=== PATIENT | female | born 1940 | race Caucasian/White ===

== ENCOUNTER 2018-02-10 14:38 | Inpatient (IN) | payer MEDICARE, OTHER ==
[~2018-02-10] VITALS: Ht 157.5 cm; Wt 67.2 kg
[2018-02-10 15:09] LABS: BASOPHILS % (AUTO) 0.3 % (0-1); EOSINOPHILS # (AUTO) 0.3 X10'3 (0-0.9); EOSINOPHILS % (AUTO) 3.8 % (0-6); HEMATOCRIT 34.6 % (35.0-45.0); HEMOGLOBIN 11.6 g/dl (12.0-16.0); LYMPHOCYTES # (AUTO) 2.6 X10'3 (1.1-4.8); LYMPHOCYTES % (AUTO) 39.1 % (21-51); MEAN CORPUSCULAR HEMOGLOBIN 33.7 PG (27.0-31.0); MEAN CORPUSCULAR HGB CONC 33.6 % (33.0-36.5); MEAN CORPUSCULAR VOLUME 100.3 FL (78-98); MEAN PLATELET VOLUME 7.6 FL (7.4-10.4); MONOCYTES # (AUTO) 0.7 X10'3 (0-0.9); MONOCYTES % (AUTO) 10.4 % (2-12); NEUTROPHILS % (AUTO) 46.4 % (42-75); PLATELET COUNT 178 X10'3 (140-440); RED BLOOD COUNT 3.45 X10'6 (4.20-5.60); RED CELL DISTRIBUTION WIDTH 16.3 % (11.5-14.5); WHITE BLOOD COUNT 6.6 X10'3 (4.5-11.0)
[2018-02-10] MEDS ORDERED: normal saline 1000ML IV soln IVB ONE ×2 (15:20→18:50)
[2018-02-10 15:21] LABS: INR 1.1 INR; PARTIAL THROMBOPLASTIN TIME 31 SECONDS (22-32); PROTHROMBIN TIME 11.2 SECONDS (9.0-12.0)
[2018-02-10 15:42] LABS: ALANINE AMINOTRANSFERASE 49 U/L (12-78); ALBUMIN 2.5 G/DL (3.4-5.0); ALBUMIN/GLOBULIN RATIO 0.6 (1.1-1.5); ALKALINE PHOSPHATASE 113 IU/L (46-116); ANION GAP 13 (8-16); ASPARTATE AMINO TRANSFERASE 65 U/L (10-37); BILIRUBIN,TOTAL 0.4 MG/DL (0.1-1.0); BLOOD UREA NITROGEN 13 MG/DL (7-18); BUN/CREATININE RATIO 7.6 (6.6-38.0); CALCIUM 8.5 MG/DL (8.5-10.1); CHLORIDE 102 MMOL/L (99-107); CREATININE 1.72 MG/DL (0.40-0.90); GLUCOSE 122 MG/DL (70-104); MAGNESIUM 1.4 MG/DL (1.5-2.4); PHOSPHORUS 3.9 MG/DL (2.3-4.5); POTASSIUM 3.4 MMOL/L (3.5-5.1); SODIUM 138 MMOL/L (135-145); TOTAL CARBON DIOXIDE 22.9 MMOL/L (24-32); TOTAL PROTEIN 6.5 G/DL (6.4-8.2); eGFR 29 ML/MIN
[2018-02-10] MEDS ORDERED: magnesium 1 gm/2ml inj. 1 GM in normal saline 50ml IV soln 48 ML IV ONE (16:15)
[2018-02-10] MEDS ORDERED: magnesium 2GM in 50ml NS 25 ML IV ONE (16:25)
[2018-02-10] MEDS ORDERED: METO1TAB25 PO (18:28)
[2018-02-10] MEDS ORDERED: LEVO75TA PO (18:28)
[2018-02-10] MEDS ORDERED: ROSU40TA PO (18:28)
[2018-02-10] MEDS ORDERED: FAMO20TA8 PO (18:28)
[2018-02-10] MEDS ORDERED: QUET25TA PO (18:28)
[2018-02-10] MEDS ORDERED: LYR25C PO (18:28)
[2018-02-10] MEDS ORDERED: ATOR80TA PO (18:28)
[2018-02-10] MEDS ORDERED: QUET-1 PO (18:28)
[2018-02-10] MEDS ORDERED: GABA600T2 PO (18:28)
[2018-02-10] MEDS ORDERED: LEVO50TA PO (18:31)
[2018-02-10] MEDS ORDERED: metoprolol tartrate 1mg/ml inj IV ONE (21:15)
[2018-02-10] MEDS ORDERED: HYDROcodone/acetaminophen 10/325mg tab PO PRN (21:50)
[2018-02-10] MEDS ORDERED: thiamine 100mg/ml 2ml inj. IV ONE (21:50)
[2018-02-10] MEDS ORDERED: magnesium 4gm in 100ml NS 100 ML IV PRN (21:50)
[2018-02-10] MEDS ORDERED: LORazepam 2 mg/ml vial IV PRN (21:50)
[2018-02-10] MEDS ORDERED: magnesium hydroxide 30ml (MOM) UD suspension PO PRN (21:50)
[2018-02-10] MEDS ORDERED: mag hydrox/Alum hydrox/simeth 30ml oral suspension PO PRN (21:50)
[2018-02-10] MEDS ORDERED: haloperidol lactate 5mg/ml inj IM PRN (21:50)
[2018-02-10] MEDS ORDERED: potassium Cl 20 mEq SR tablet PO PRN ×2 (21:50)
[2018-02-10] MEDS ORDERED: dextrose 50%-water 50ml dispensing syringe IV PRN (21:50)
[2018-02-10] MEDS ORDERED: magnesium 2GM in 50ml NS 50 ML IV PRN (21:50)
[2018-02-10] MEDS ORDERED: ondansetron/PF 4mg/2ml inj IV PRN (21:50)
[2018-02-10] MEDS ORDERED: potassium Cl 40MEQ/NS 500ml 500 ML IV PRN ×2 (21:50)
[2018-02-10] MEDS ORDERED: LORazepam 1 MG tablet PO PRN (21:50)
[2018-02-10] MEDS ORDERED: haloperidol 5mg tablet PO PRN (21:50)
[2018-02-10] MEDS: potassium Cl 20mEq in NS 1,000 ML IV SCH (22:52)
[2018-02-11] VITALS: BP 113/58
[2018-02-11] MEDS: temazepam 15mg capsule PO PRN (00:35)
[2018-02-11] MEDS ORDERED: diatrozoate meglu/diatrozoate sod (37% iodine) 120ML oral solution PO ONE ×2 (00:55→07:00)
[2018-02-11] MEDS ORDERED: diatrozoate meglu/diatrozoate sod (37% iodine) 120ML oral solution ONE (01:51)
[2018-02-11 05:35] LABS: BASOPHILS % (AUTO) 0.3 % (0-1); EOSINOPHILS # (AUTO) 0.2 X10'3 (0-0.9); EOSINOPHILS % (AUTO) 4.2 % (0-6); HEMATOCRIT 27.5 % (35.0-45.0); HEMOGLOBIN 9.3 g/dl (12.0-16.0); LYMPHOCYTES % (AUTO) 42.2 % (21-51); MEAN CORPUSCULAR HEMOGLOBIN 33.8 PG (27.0-31.0); MEAN CORPUSCULAR HGB CONC 33.8 % (33.0-36.5); MEAN PLATELET VOLUME 7.4 FL (7.4-10.4); MONOCYTES # (AUTO) 0.6 X10'3 (0-0.9); MONOCYTES % (AUTO) 12.8 % (2-12); NEUTROPHILS # (AUTO) 1.9 X10'3 (1.8-7.7); NEUTROPHILS % (AUTO) 40.5 % (42-75); PLATELET COUNT 131 X10'3 (140-440); RED BLOOD COUNT 2.75 X10'6 (4.20-5.60); RED CELL DISTRIBUTION WIDTH 16.6 % (11.5-14.5); WHITE BLOOD COUNT 4.7 X10'3 (4.5-11.0)
[2018-02-11 05:50] LABS: HEMOGLOBIN A1C 5.4 % (4.5-6.2)
[2018-02-11 05:54] LABS: ALANINE AMINOTRANSFERASE 35 U/L (12-78); ALBUMIN 1.9 G/DL (3.4-5.0); ALBUMIN/GLOBULIN RATIO 0.6 (1.1-1.5); ALKALINE PHOSPHATASE 84 IU/L (46-116); ANION GAP 12 (8-16); ASPARTATE AMINO TRANSFERASE 48 U/L (10-37); BILIRUBIN,TOTAL 0.4 MG/DL (0.1-1.0); BLOOD UREA NITROGEN 10 MG/DL (7-18); BUN/CREATININE RATIO 7.4 (6.6-38.0); CALCIUM 7.4 MG/DL (8.5-10.1); CHLORIDE 112 MMOL/L (99-107); CREATININE 1.35 MG/DL (0.40-0.90); GLUCOSE 83 MG/DL (70-104); MAGNESIUM 1.5 MG/DL (1.5-2.4); POTASSIUM 3.3 MMOL/L (3.5-5.1); SODIUM 143 MMOL/L (135-145); TOTAL CARBON DIOXIDE 18.9 MMOL/L (24-32); TOTAL PROTEIN 5.1 G/DL (6.4-8.2); eGFR 38 ML/MIN
[2018-02-11] MEDS ORDERED: normal saline 500ml IV soln 500 ML IV ONE (07:05)
[2018-02-11 07:44] VITALS: BP 80/42
[2018-02-11] MEDS: metoprolol tartrate 50mg tablet PO SCH (08:00)
[2018-02-11] MEDS ORDERED: non-formulary drug (Rosuvastatin Calcium* (Crestor*) 1 TAB) PO SCH (08:00)
[2018-02-11] MEDS ORDERED: pregabalin 25mg capsule PO ONE ×2 (08:00→21:50)
[2018-02-11] MEDS: K and/or MAG REPLACEMENT MC SCH (08:00)
[2018-02-11] MEDS ORDERED: gabapentin 300mg capsule PO SCH (08:00)
[2018-02-11] MEDS: HYDROchlorothiazide 25mg tablet PO SCH (08:00)
[2018-02-11] MEDS ORDERED: non-formulary drug (Metoprolol/Hydrochlorothiazide 50/25 MG* (Lopressor Hct 50/25 MG*) 1 T PO SCH (08:00)
[2018-02-11] MEDS ORDERED: non-formulary drug (Levothyroxine Sodium (Synthroid) 1 TAB) PO SCH (08:00)
[2018-02-11] MEDS ORDERED: non-formulary drug (Gabapentin 1 TAB) PO SCH (08:00)
[2018-02-11 08:33] LABS: C DIFF ANTIGEN NEGATIVE (NEGATIVE); C DIFF SPECIMEN=DIARRHEA? ACCEPTABLE; C DIFFICILE TOXINS A&B NEGATIVE (Neg)
[2018-02-11] MEDS ORDERED: albumin (human) 25% 100 ML IV solution IV ONE (08:45)
[2018-02-11] MEDS: potassium Cl 20mEq in NS 1,000 ML IV SCH ×2 (10:19→17:48)
[2018-02-11] MEDS: atorvastatin 20mg tablet PO SCH (10:22)
[2018-02-11] MEDS: levoTHYROXINE 25mcg tablet PO SCH (10:23)
[2018-02-11] MEDS: famotidine 20mg tablet PO SCH ×2 (10:24→21:59)
[2018-02-11] MEDS: heparin, porcine 5000 units/ml vial SQ SCH ×2 (10:27→20:00)
[2018-02-11 11:56] VITALS: BP 118/55
[2018-02-11] MEDS: diatr meglu/diatrizoate 30ml oral sol.-(3 dose) bottle PO SCH (14:00)
[2018-02-11 17:01] VITALS: BP 110/63
[2018-02-11 17:12] LABS: ALANINE AMINOTRANSFERASE 30 U/L (12-78); ALBUMIN 2.5 G/DL (3.4-5.0); ALBUMIN/GLOBULIN RATIO 0.9 (1.1-1.5); ALKALINE PHOSPHATASE 70 IU/L (46-116); ANION GAP 10 (8-16); ASPARTATE AMINO TRANSFERASE 41 U/L (10-37); BILIRUBIN,TOTAL 0.4 MG/DL (0.1-1.0); BLOOD UREA NITROGEN 9 MG/DL (7-18); BUN/CREATININE RATIO 7.2 (6.6-38.0); CALCIUM 7.9 MG/DL (8.5-10.1); CHLORIDE 115 MMOL/L (99-107); CREATININE 1.25 MG/DL (0.40-0.90); GLUCOSE 82 MG/DL (70-104); POTASSIUM 3.4 MMOL/L (3.5-5.1); SODIUM 147 MMOL/L (135-145); TOTAL CARBON DIOXIDE 21.9 MMOL/L (24-32); TOTAL PROTEIN 5.2 G/DL (6.4-8.2); eGFR 41 ML/MIN
[2018-02-11 20:00] VITALS: BP 124/67
[2018-02-11] MEDS ORDERED: QUEtiapine 25mg tablet PO SCH (21:00)
[2018-02-11] MEDS ORDERED: pregabalin 25mg capsule PO SCH ×2 (21:00)
[2018-02-11] MEDS ORDERED: atorvastatin 20mg tablet PO SCH (21:00)
[2018-02-11] MEDS ORDERED: non-formulary drug (Atorvastatin Calcium* (Lipitor*) 1 TABLET) PO SCH (21:00)
[2018-02-11] MEDS: pregabalin 25mg capsule PO SCH (21:30)
[2018-02-11] MEDS: acetaminophen 325mg tablet PO PRN (23:17)
[2018-02-12] VITALS (11 sets, daily range): BP systolic 93–157; BP diastolic 50–106
[2018-02-12] MEDS: potassium Cl 20mEq in NS 1,000 ML IV SCH ×5 (00:50→23:47)
[2018-02-12] MEDS: acetaminophen 325mg tablet PO PRN (05:36)
[2018-02-12 05:42] LABS: BASOPHILS % (AUTO) 0.4 % (0-1); EOSINOPHILS # (AUTO) 0.2 X10'3 (0-0.9); HEMATOCRIT 24.3 % (35.0-45.0); HEMOGLOBIN 8.3 g/dl (12.0-16.0); LYMPHOCYTES # (AUTO) 1.8 X10'3 (1.1-4.8); LYMPHOCYTES % (AUTO) 47.9 % (21-51); MEAN CORPUSCULAR HGB CONC 34.3 % (33.0-36.5); MEAN CORPUSCULAR VOLUME 99.3 FL (78-98); MEAN PLATELET VOLUME 7.4 FL (7.4-10.4); MONOCYTES # (AUTO) 0.4 X10'3 (0-0.9); MONOCYTES % (AUTO) 11.7 % (2-12); NEUTROPHILS # (AUTO) 1.3 X10'3 (1.8-7.7); PLATELET COUNT 131 X10'3 (140-440); RED BLOOD COUNT 2.44 X10'6 (4.20-5.60); RED CELL DISTRIBUTION WIDTH 16.1 % (11.5-14.5); WHITE BLOOD COUNT 3.7 X10'3 (4.5-11.0)
[2018-02-12 06:10] LABS: ALANINE AMINOTRANSFERASE 32 U/L (12-78); ALBUMIN 2.3 G/DL (3.4-5.0); ALBUMIN/GLOBULIN RATIO 0.9 (1.1-1.5); ALKALINE PHOSPHATASE 70 IU/L (46-116); ANION GAP 10 (8-16); ASPARTATE AMINO TRANSFERASE 45 U/L (10-37); BILIRUBIN,TOTAL 0.4 MG/DL (0.1-1.0); BLOOD UREA NITROGEN 8 MG/DL (7-18); BUN/CREATININE RATIO 7.1 (6.6-38.0); CALCIUM 7.7 MG/DL (8.5-10.1); CHLORIDE 116 MMOL/L (99-107); CREATININE 1.13 MG/DL (0.40-0.90); GLUCOSE 72 MG/DL (70-104); MAGNESIUM 1.4 MG/DL (1.5-2.4); POTASSIUM 3.6 MMOL/L (3.5-5.1); SODIUM 146 MMOL/L (135-145); TOTAL CARBON DIOXIDE 19.8 MMOL/L (24-32); eGFR 47 ML/MIN
[2018-02-12 07:15] LABS: OCCULT BLOOD STOOL NEGATIVE (Neg)
[2018-02-12] MEDS ORDERED: albumin (human) 25% 100 ML IV solution IV ONE (07:50)
[2018-02-12] MEDS: K and/or MAG REPLACEMENT MC SCH (07:58)
[2018-02-12] MEDS: heparin, porcine 5000 units/ml vial SQ SCH ×2 (08:00→20:00)
[2018-02-12] MEDS: HYDROchlorothiazide 25mg tablet PO SCH (08:00)
[2018-02-12] MEDS: atorvastatin 20mg tablet PO SCH (08:00)
[2018-02-12] MEDS: famotidine 20mg tablet PO SCH ×2 (08:00→20:58)
[2018-02-12] MEDS: levoTHYROXINE 25mcg tablet PO SCH (08:00)
[2018-02-12] MEDS: metoprolol tartrate 50mg tablet PO SCH (08:00)
[2018-02-12] MEDS: diatr meglu/diatrizoate 30ml oral sol.-(3 dose) bottle PO SCH (10:00)
[2018-02-12] MEDS: magnesium Cl slow-release 64mg tablet PO PRN (14:57)
[2018-02-12] MEDS ORDERED: calcium chloride inj. 1,000 MG in normal saline 100ml IV soln 90 ML IV ONE (16:45)
[2018-02-12] MEDS ORDERED: digoxin 250mcg/ml 2ml ampule IV ONE (16:45)
[2018-02-12] MEDS: metoprolol tartrate 25mg tablet PO SCH (19:14)
[2018-02-12] MEDS: nortriptyline 10mg capsule PO SCH (20:59)
[2018-02-12] MEDS: pregabalin 25mg capsule PO SCH (20:59)
[2018-02-12] MEDS: temazepam 15mg capsule PO PRN (22:04)
[2018-02-13] VITALS (11 sets, daily range): BP systolic 106–148; BP diastolic 56–86
[2018-02-13] MEDS: acetaminophen 325mg tablet PO PRN (00:32)
[2018-02-13] MEDS: potassium Cl 20mEq in NS 1,000 ML IV SCH ×2 (01:18→14:51)
[2018-02-13] MEDS: HYDROcodone/acetaminophen 5mg/325mg tablet PO PRN (04:03)
[2018-02-13 07:32] LABS: BASOPHILS % (AUTO) 0.4 % (0-1); EOSINOPHILS # (AUTO) 0.2 X10'3 (0-0.9); EOSINOPHILS % (AUTO) 5.1 % (0-6); HEMATOCRIT 32.7 % (35.0-45.0); LYMPHOCYTES # (AUTO) 1.8 X10'3 (1.1-4.8); LYMPHOCYTES % (AUTO) 38.4 % (21-51); MEAN CORPUSCULAR HGB CONC 33.7 % (33.0-36.5); MEAN CORPUSCULAR VOLUME 97.9 FL (78-98); MEAN PLATELET VOLUME 7.5 FL (7.4-10.4); MONOCYTES # (AUTO) 0.6 X10'3 (0-0.9); MONOCYTES % (AUTO) 13.3 % (2-12); NEUTROPHILS % (AUTO) 42.8 % (42-75); PLATELET COUNT 128 X10'3 (140-440); RED BLOOD COUNT 3.34 X10'6 (4.20-5.60); RED CELL DISTRIBUTION WIDTH 19.1 % (11.5-14.5); WHITE BLOOD COUNT 4.7 X10'3 (4.5-11.0)
[2018-02-13 07:43] LABS: ALANINE AMINOTRANSFERASE 32 U/L (12-78); ALBUMIN 2.7 G/DL (3.4-5.0); ALKALINE PHOSPHATASE 72 IU/L (46-116); ANION GAP 9 (8-16); ASPARTATE AMINO TRANSFERASE 48 U/L (10-37); BILIRUBIN,TOTAL 1.3 MG/DL (0.1-1.0); BLOOD UREA NITROGEN 7 MG/DL (7-18); BUN/CREATININE RATIO 6.5 (6.6-38.0); CALCIUM 8.9 MG/DL (8.5-10.1); CHLORIDE 115 MMOL/L (99-107); CREATININE 1.08 MG/DL (0.40-0.90); GLUCOSE 83 MG/DL (70-104); MAGNESIUM 1.3 MG/DL (1.5-2.4); POTASSIUM 4.1 MMOL/L (3.5-5.1); SODIUM 144 MMOL/L (135-145); TOTAL CARBON DIOXIDE 20.3 MMOL/L (24-32); TOTAL PROTEIN 5.4 G/DL (6.4-8.2); eGFR 49 ML/MIN
[2018-02-13] MEDS: K and/or MAG REPLACEMENT MC SCH (07:45)
[2018-02-13] MEDS: metoprolol tartrate 25mg tablet PO SCH ×2 (08:00→21:02)
[2018-02-13] MEDS: heparin, porcine 5000 units/ml vial SQ SCH ×2 (08:04→21:02)
[2018-02-13] MEDS: famotidine 20mg tablet PO SCH ×2 (08:04→21:01)
[2018-02-13] MEDS: levoTHYROXINE 25mcg tablet PO SCH (08:05)
[2018-02-13] MEDS: atorvastatin 20mg tablet PO SCH (08:06)
[2018-02-13] MEDS: diatr meglu/diatrizoate 30ml oral sol.-(3 dose) bottle PO SCH (10:00)
[2018-02-13] MEDS: magnesium Cl slow-release 64mg tablet PO PRN (16:31)
[2018-02-13] MEDS ORDERED: LORazepam 1 MG tablet PO PRN (17:00)
[2018-02-13] MEDS ORDERED: metoprolol tartrate 50mg tablet PO STA (18:18)
[2018-02-13] MEDS: nortriptyline 10mg capsule PO SCH (20:57)
[2018-02-13] MEDS: pregabalin 25mg capsule PO SCH (20:59)
[2018-02-13] MEDS ORDERED: furosemide 20 MG/2 ML vial IV ONE ×2 (21:25→23:20)
[2018-02-13 21:55] LABS: ABG BASE EXCESS -13.2 mmol/L (-2.0-3.0); ABG HCO3 14.8 mmol/L (22.0-26.0); ABG OXYGEN SATURATION 89.1 % (95-98); ABG PCO2 (T) 41.1 mmHg (32.0-45.0); ABG PH (T) 7.172 (7.350-7.450); ABG PO2 (T) 67.9 mmHg (83-108); ALLEN'S TEST Positive; FCOHb 0.5 % (0.5-1.5); FMetHb 0.3 % (0.3-1.12); FO2Hb 88.4 % (94-100); PATIENT TEMPERATURE 36.9; RESPIRATORY RATE (OBSERVED) 30 b/min; TOTAL HEMOGLOBIN 14.5 G/dl (12.0-16.0)
[2018-02-13] MEDS ORDERED: sodium bicarbonate (8.4%) inj. 150 MEQ in sodium chloride 0.45% 1,000 ML IV SCH (23:35)
[2018-02-13] MEDS ORDERED: sodium bicarbonate 1 MEQ/1 ml inj ONE (23:54)
[2018-02-14] VITALS (33 sets, daily range): BP systolic 55–148; BP diastolic 30–76
[2018-02-14 03:05] LABS: ABG BASE EXCESS -6.4 mmol/L (-2.0-3.0); ABG HCO3 18.6 mmol/L (22.0-26.0); ABG OXYGEN SATURATION 95.6 % (95-98); ABG PCO2 (T) 34.2 mmHg (32.0-45.0); ABG PH (T) 7.349 (7.350-7.450); ABG PO2 (T) 78.1 mmHg (83-108); ALLEN'S TEST Positive; FCOHb 0.5 % (0.5-1.5); FMetHb 0.1 % (0.3-1.12); MINUTE VOLUME 16 L/min; PATIENT TEMPERATURE 36.3; RESPIRATORY RATE 20 b/min; RESPIRATORY RATE (OBSERVED) 32 b/min; TOTAL HEMOGLOBIN 12.9 G/dl (12.0-16.0)
[2018-02-14 05:12] LABS: ALANINE AMINOTRANSFERASE 28 U/L (12-78); ALBUMIN 2.7 G/DL (3.4-5.0); ALBUMIN/GLOBULIN RATIO 0.9 (1.1-1.5); ALKALINE PHOSPHATASE 74 IU/L (46-116); ANION GAP 11 (8-16); ASPARTATE AMINO TRANSFERASE 45 U/L (10-37); BILIRUBIN,TOTAL 0.9 MG/DL (0.1-1.0); BLOOD UREA NITROGEN 9 MG/DL (7-18); BUN/CREATININE RATIO 7.4 (6.6-38.0); CALCIUM 9.4 MG/DL (8.5-10.1); CHLORIDE 111 MMOL/L (99-107); CREATININE 1.22 MG/DL (0.40-0.90); GLUCOSE 87 MG/DL (70-104); MAGNESIUM 1.3 MG/DL (1.5-2.4); PHOSPHORUS 4.1 MG/DL (2.3-4.5); POTASSIUM 4.2 MMOL/L (3.5-5.1); SODIUM 142 MMOL/L (135-145); TOTAL CARBON DIOXIDE 20.1 MMOL/L (24-32); TOTAL PROTEIN 5.8 G/DL (6.4-8.2); eGFR 43 ML/MIN
[2018-02-14 05:13] LABS: BASOPHILS % (AUTO) 0.3 % (0-1); EOSINOPHILS % (AUTO) 0.1 % (0-6); HEMOGLOBIN 12.7 g/dl (12.0-16.0); LYMPHOCYTES # (AUTO) 1.1 X10'3 (1.1-4.8); MEAN CORPUSCULAR HEMOGLOBIN 33.1 PG (27.0-31.0); MEAN CORPUSCULAR HGB CONC 34.3 % (33.0-36.5); MEAN CORPUSCULAR VOLUME 96.6 FL (78-98); MONOCYTES # (AUTO) 0.8 X10'3 (0-0.9); MONOCYTES % (AUTO) 9.4 % (2-12); NEUTROPHILS # (AUTO) 6.3 X10'3 (1.8-7.7); NEUTROPHILS % (AUTO) 77.2 % (42-75); PLATELET COUNT 130 X10'3 (140-440); RED BLOOD COUNT 3.83 X10'6 (4.20-5.60); WHITE BLOOD COUNT 8.1 X10'3 (4.5-11.0)
[2018-02-14] MEDS ORDERED: DOPamine 400mg/D5W 250ml 250 ML IV SCH (07:15)
[2018-02-14] MEDS ORDERED: albumin (human) 25% 100 ML IV solution IV ONE (07:15)
[2018-02-14] MEDS ORDERED: piperacillin/tazo 3.375gm/50ml 50 ML IV SCH (08:00)
[2018-02-14] MEDS ORDERED: sod chloride 0.9% 10ml flush syringe IV ONE (08:00)
[2018-02-14] MEDS: metoprolol tartrate 25mg tablet PO SCH (08:00)
[2018-02-14] MEDS ORDERED: DOPamine/D5W 400mg/250ml bag IV ONE (08:00)
[2018-02-14] MEDS: diatr meglu/diatrizoate 30ml oral sol.-(3 dose) bottle PO SCH (08:13)
[2018-02-14] MEDS ORDERED: heparin sodium, porcine/PF 100unit/ml 5ML syringe IV ONE (08:41)
[2018-02-14] MEDS: levoTHYROXINE 25mcg tablet PO SCH (08:42)
[2018-02-14] MEDS: atorvastatin 20mg tablet PO SCH (08:45)
[2018-02-14] MEDS: famotidine 20mg tablet PO SCH ×2 (08:48→19:53)
[2018-02-14] MEDS: K and/or MAG REPLACEMENT MC SCH (09:07)
[2018-02-14] MEDS: heparin, porcine 5000 units/ml vial SQ SCH ×2 (09:12→19:53)
[2018-02-14] MEDS ORDERED: amiodarone 150mg/dext, iso-os 100 ML IV ONE (10:00)
[2018-02-14] MEDS: amiodarone/D5 450MG/250ML BAG 250 ML IV SCH ×2 (10:38→18:32)
[2018-02-14] MEDS: Protein Shake (high protein) 240ml (8oz) cup PO SCH ×2 (13:00→18:10)
[2018-02-14] MEDS: NORepinephrine 8mg/ 250ml NS 250 ML IV SCH (14:15)
[2018-02-14] MEDS: nortriptyline 10mg capsule PO SCH (20:46)
[2018-02-14] MEDS: pregabalin 25mg capsule PO SCH (20:46)
[2018-02-14] MEDS: normal saline 1000ml 1,000 ML IV SCH (22:10)
[2018-02-14] MEDS: temazepam 15mg capsule PO PRN (22:10)
[2018-02-15] VITALS (26 sets, daily range): BP systolic 73–140; BP diastolic 36–94
[2018-02-15 04:10] LABS: BASOPHILS % (AUTO) 0.5 % (0-1); EOSINOPHILS # (AUTO) 0.2 X10'3 (0-0.9); EOSINOPHILS % (AUTO) 1.8 % (0-6); HEMATOCRIT 33.1 % (35.0-45.0); HEMOGLOBIN 11.2 g/dl (12.0-16.0); LYMPHOCYTES # (AUTO) 2.4 X10'3 (1.1-4.8); LYMPHOCYTES % (AUTO) 27.1 % (21-51); MEAN CORPUSCULAR HEMOGLOBIN 32.7 PG (27.0-31.0); MEAN CORPUSCULAR HGB CONC 33.8 % (33.0-36.5); MEAN CORPUSCULAR VOLUME 96.6 FL (78-98); MEAN PLATELET VOLUME 7.2 FL (7.4-10.4); MONOCYTES # (AUTO) 0.8 X10'3 (0-0.9); MONOCYTES % (AUTO) 9.3 % (2-12); NEUTROPHILS # (AUTO) 5.5 X10'3 (1.8-7.7); NEUTROPHILS % (AUTO) 61.3 % (42-75); PLATELET COUNT 138 X10'3 (140-440); RED BLOOD COUNT 3.42 X10'6 (4.20-5.60); RED CELL DISTRIBUTION WIDTH 18.5 % (11.5-14.5)
[2018-02-15 04:24] LABS: ALANINE AMINOTRANSFERASE 26 U/L (12-78); ALBUMIN 2.8 G/DL (3.4-5.0); ALBUMIN/GLOBULIN RATIO 0.9 (1.1-1.5); ALKALINE PHOSPHATASE 66 IU/L (46-116); ANION GAP 10 (8-16); ASPARTATE AMINO TRANSFERASE 36 U/L (10-37); BILIRUBIN,TOTAL 0.7 MG/DL (0.1-1.0); BLOOD UREA NITROGEN 15 MG/DL (7-18); BUN/CREATININE RATIO 10.9 (6.6-38.0); CALCIUM 8.9 MG/DL (8.5-10.1); CHLORIDE 111 MMOL/L (99-107); CREATININE 1.38 MG/DL (0.40-0.90); GLUCOSE 105 MG/DL (70-104); MAGNESIUM 1.4 MG/DL (1.5-2.4); POTASSIUM 3.1 MMOL/L (3.5-5.1); SODIUM 143 MMOL/L (135-145); TOTAL CARBON DIOXIDE 21.7 MMOL/L (24-32); eGFR 37 ML/MIN
[2018-02-15] MEDS: K and/or MAG REPLACEMENT MC SCH (08:00)
[2018-02-15] MEDS: famotidine 20mg tablet PO SCH ×2 (08:00→20:31)
[2018-02-15] MEDS: levoTHYROXINE 25mcg tablet PO SCH (08:00)
[2018-02-15] MEDS: atorvastatin 20mg tablet PO SCH (08:00)
[2018-02-15] MEDS: heparin, porcine 5000 units/ml vial SQ SCH ×2 (08:03→20:32)
[2018-02-15] MEDS: Protein Shake (high protein) 240ml (8oz) cup PO SCH ×3 (08:16→18:00)
[2018-02-15] MEDS ORDERED: potassium Cl 20 mEq SR tablet PO PRN ×4 (10:55→17:15)
[2018-02-15] MEDS ORDERED: normal saline 1000ml 1,000 ML IV ONE (12:45)
[2018-02-15] MEDS: amiodarone/D5 450MG/250ML BAG 250 ML IV SCH (15:55)
[2018-02-15] MEDS ORDERED: potassium Cl 40MEQ/NS 500ml 500 ML IV PRN ×2 (17:15)
[2018-02-15] MEDS ORDERED: potassium Cl 40MEQ/250ML bag 250 ML IV PRN ×2 (17:15)
[2018-02-15] MEDS: K, MAG and/or Phos replacement - Verify level? MC SCH (17:28)
[2018-02-15] MEDS ORDERED: albuterol 2.5 MG/3 ML nebule NEB PRN (19:30)
[2018-02-15] MEDS ORDERED: LIDOCAINE 1% IV ONE (20:30)
[2018-02-15] MEDS ORDERED: POTASSIUM CL IV ONE (20:30)
[2018-02-15] MEDS ORDERED: LIDOCAINE 1% IV PRN (20:30)
[2018-02-15] MEDS ORDERED: POTASSIUM CL IV PRN (20:30)
[2018-02-15] MEDS: nortriptyline 10mg capsule PO SCH (20:32)
[2018-02-15] MEDS: pregabalin 25mg capsule PO SCH (20:33)
[2018-02-15] MEDS: albuterol 2.5 MG/3 ML nebule NEB PRN (21:23)
[2018-02-15] MEDS ORDERED: magnesium 4gm in 100ml NS 100 ML IV PRN (21:50)
[2018-02-15] MEDS ORDERED: magnesium 2GM in 50ml NS 50 ML IV PRN (21:50)
[2018-02-15] MEDS: temazepam 15mg capsule PO PRN (22:44)
[2018-02-15] MEDS: normal saline 1000ml 1,000 ML IV SCH (22:46)
[2018-02-16] VITALS (25 sets, daily range): BP systolic 95–156; BP diastolic 43–74
[2018-02-16] MEDS: amiodarone/D5 450MG/250ML BAG 250 ML IV SCH ×2 (03:06→20:08)
[2018-02-16] MEDS: NORepinephrine 8mg/ 250ml NS 250 ML IV SCH (03:56)
[2018-02-16] MEDS: albuterol 2.5 MG/3 ML nebule NEB PRN (04:18)
[2018-02-16 04:43] LABS: MAGNESIUM 1.4 MG/DL (1.5-2.4); POTASSIUM 3.4 MMOL/L (3.5-5.1)
[2018-02-16] MEDS: K and/or MAG REPLACEMENT MC SCH (08:00)
[2018-02-16] MEDS: K, MAG and/or Phos replacement - Verify level? MC SCH (08:00)
[2018-02-16] MEDS ORDERED: LORazepam 1 MG tablet PO PRN (08:35)
[2018-02-16] MEDS: atorvastatin 20mg tablet PO SCH (09:07)
[2018-02-16] MEDS: famotidine 20mg tablet PO SCH ×3 (09:07→20:19)
[2018-02-16] MEDS: levoTHYROXINE 25mcg tablet PO SCH (09:07)
[2018-02-16] MEDS: Protein Shake (high protein) 240ml (8oz) cup PO SCH ×3 (09:08→18:00)
[2018-02-16] MEDS: heparin, porcine 5000 units/ml vial SQ SCH ×2 (09:08→20:18)
[2018-02-16 11:07] LABS: ALANINE AMINOTRANSFERASE 23 U/L (12-78); ALBUMIN 2.6 G/DL (3.4-5.0); ALBUMIN/GLOBULIN RATIO 0.9 (1.1-1.5); ALKALINE PHOSPHATASE 66 IU/L (46-116); ANION GAP 12 (8-16); ASPARTATE AMINO TRANSFERASE 34 U/L (10-37); BILIRUBIN,TOTAL 0.6 MG/DL (0.1-1.0); BLOOD UREA NITROGEN 16 MG/DL (7-18); BUN/CREATININE RATIO 12.8 (6.6-38.0); CALCIUM 8.5 MG/DL (8.5-10.1); CHLORIDE 113 MMOL/L (99-107); CREATININE 1.25 MG/DL (0.40-0.90); GLUCOSE 110 MG/DL (70-104); PHOSPHORUS 3.1 MG/DL (2.3-4.5); SODIUM 145 MMOL/L (135-145); TOTAL CARBON DIOXIDE 19.7 MMOL/L (24-32); TOTAL PROTEIN 5.5 G/DL (6.4-8.2); eGFR 41 ML/MIN
[2018-02-16] MEDS ORDERED: midodrine tablet 2.5 MG TABLET PO SCH (12:05)
[2018-02-16] MEDS: megestrol acetate 400mg/10ml UD oral suspension PO SCH ×2 (13:00→20:19)
[2018-02-16] MEDS: HYDROcodone/acetaminophen 5mg/325mg tablet PO PRN (13:22)
[2018-02-16] MEDS: midodrine 5mg tablet PO SCH (16:14)
[2018-02-16] MEDS: pregabalin 25mg capsule PO SCH (20:17)
[2018-02-16] MEDS: temazepam 15mg capsule PO PRN (20:17)
[2018-02-16] MEDS: magnesium Cl slow-release 64mg tablet PO PRN ×3 (20:17→20:31)
[2018-02-16] MEDS: nortriptyline 10mg capsule PO SCH (20:17)
[2018-02-16] MEDS ORDERED: normal saline 1000ml 1,000 ML IV SCH (21:00)
[2018-02-17] VITALS (26 sets, daily range): BP systolic 78–140; BP diastolic 48–75
[2018-02-17] MEDS: midodrine 5mg tablet PO SCH ×3 (00:14→18:01)
[2018-02-17 03:11] LABS: BASOPHILS % (AUTO) 0.3 % (0-1); EOSINOPHILS # (AUTO) 0.3 X10'3 (0-0.9); EOSINOPHILS % (AUTO) 4.7 % (0-6); HEMOGLOBIN 9.1 g/dl (12.0-16.0); LYMPHOCYTES # (AUTO) 1.3 X10'3 (1.1-4.8); LYMPHOCYTES % (AUTO) 21.4 % (21-51); MEAN CORPUSCULAR HEMOGLOBIN 32.9 PG (27.0-31.0); MEAN CORPUSCULAR HGB CONC 33.6 % (33.0-36.5); MEAN PLATELET VOLUME 8.4 FL (7.4-10.4); MONOCYTES # (AUTO) 0.6 X10'3 (0-0.9); MONOCYTES % (AUTO) 10.1 % (2-12); NEUTROPHILS # (AUTO) 3.9 X10'3 (1.8-7.7); NEUTROPHILS % (AUTO) 63.5 % (42-75); PLATELET COUNT 110 X10'3 (140-440); RED BLOOD COUNT 2.76 X10'6 (4.20-5.60); RED CELL DISTRIBUTION WIDTH 17.6 % (11.5-14.5); WHITE BLOOD COUNT 6.1 X10'3 (4.5-11.0)
[2018-02-17 03:24] LABS: ALANINE AMINOTRANSFERASE 24 U/L (12-78); ALBUMIN 2.6 G/DL (3.4-5.0); ALBUMIN/GLOBULIN RATIO 0.9 (1.1-1.5); ALKALINE PHOSPHATASE 75 IU/L (46-116); ANION GAP 10 (8-16); ASPARTATE AMINO TRANSFERASE 31 U/L (10-37); BILIRUBIN,TOTAL 0.8 MG/DL (0.1-1.0); BLOOD UREA NITROGEN 15 MG/DL (7-18); BUN/CREATININE RATIO 12.6 (6.6-38.0); CALCIUM 8.7 MG/DL (8.5-10.1); CHLORIDE 112 MMOL/L (99-107); CREATININE 1.19 MG/DL (0.40-0.90); GLUCOSE 115 MG/DL (70-104); MAGNESIUM 1.4 MG/DL (1.5-2.4); PHOSPHORUS 2.9 MG/DL (2.3-4.5); SODIUM 143 MMOL/L (135-145); TOTAL CARBON DIOXIDE 21.3 MMOL/L (24-32); TOTAL PROTEIN 5.6 G/DL (6.4-8.2); eGFR 44 ML/MIN
[2018-02-17] MEDS ORDERED: magnesium 2GM in 50ml NS 50 ML IV PRN (04:25)
[2018-02-17] MEDS ORDERED: magnesium 4gm in 100ml NS 100 ML IV PRN (04:25)
[2018-02-17 07:00] LABS: ANISOCYTOSIS 2+; ELLIPTOCYTES FEW; HYPOCHROMASIA 1+; PLATELET ESTIMATE DECREASED; POLYCHROMASIA 1+
[2018-02-17 07:01] LABS: BURR CELLS 1+
[2018-02-17] MEDS: levoTHYROXINE 25mcg tablet PO SCH (08:00)
[2018-02-17] MEDS: K and/or MAG REPLACEMENT MC SCH (08:00)
[2018-02-17] MEDS: megestrol acetate 400mg/10ml UD oral suspension PO SCH ×4 (08:00→20:18)
[2018-02-17] MEDS: K, MAG and/or Phos replacement - Verify level? MC SCH (08:00)
[2018-02-17] MEDS: atorvastatin 20mg tablet PO SCH (08:00)
[2018-02-17] MEDS: heparin, porcine 5000 units/ml vial SQ SCH ×2 (08:00→20:19)
[2018-02-17] MEDS: famotidine 20mg tablet PO SCH ×2 (08:00→20:18)
[2018-02-17] MEDS: Protein Shake (high protein) 240ml (8oz) cup PO SCH ×3 (08:00→18:00)
[2018-02-17] MEDS: amiodarone/D5 450MG/250ML BAG 250 ML IV SCH (09:02)
[2018-02-17] MEDS ORDERED: amiodarone 200mg tablet PO ONE (11:45)
[2018-02-17 19:16] LABS: OCCULT BLOOD STOOL NEGATIVE (Neg)
[2018-02-17 19:38] LABS: % IRON SATURATION 53 % (11-46); IRON 43 UG/DL (49-151); TOTAL IRON BINDING CAPACITY 81 UG/DL (259-388)
[2018-02-17] MEDS: amiodarone 200mg tablet PO SCH (20:17)
[2018-02-17] MEDS: temazepam 15mg capsule PO PRN (20:18)
[2018-02-17] MEDS: nortriptyline 10mg capsule PO SCH (20:18)
[2018-02-17] MEDS: pregabalin 25mg capsule PO SCH (20:18)
[2018-02-18] VITALS (20 sets, daily range): BP systolic 82–151; BP diastolic 47–83
[2018-02-18] MEDS: midodrine 5mg tablet PO SCH ×4 (00:08→23:44)
[2018-02-18] MEDS: NORepinephrine 8mg/ 250ml NS 250 ML IV SCH (01:22)
[2018-02-18 05:29] LABS: BASOPHILS % (AUTO) 0.4 % (0-1); EOSINOPHILS # (AUTO) 0.2 X10'3 (0-0.9); EOSINOPHILS % (AUTO) 3.2 % (0-6); HEMATOCRIT 32.7 % (35.0-45.0); HEMOGLOBIN 11.1 g/dl (12.0-16.0); LYMPHOCYTES # (AUTO) 1.8 X10'3 (1.1-4.8); LYMPHOCYTES % (AUTO) 24.9 % (21-51); MEAN CORPUSCULAR HEMOGLOBIN 32.7 PG (27.0-31.0); MEAN CORPUSCULAR HGB CONC 33.8 % (33.0-36.5); MEAN PLATELET VOLUME 8.5 FL (7.4-10.4); MONOCYTES # (AUTO) 0.8 X10'3 (0-0.9); MONOCYTES % (AUTO) 10.6 % (2-12); NEUTROPHILS # (AUTO) 4.5 X10'3 (1.8-7.7); NEUTROPHILS % (AUTO) 60.9 % (42-75); PLATELET COUNT 133 X10'3 (140-440); RED BLOOD COUNT 3.37 X10'6 (4.20-5.60); RED CELL DISTRIBUTION WIDTH 17.3 % (11.5-14.5); WHITE BLOOD COUNT 7.4 X10'3 (4.5-11.0)
[2018-02-18 05:43] LABS: ALANINE AMINOTRANSFERASE 19 U/L (12-78); ALBUMIN 2.1 G/DL (3.4-5.0); ALBUMIN/GLOBULIN RATIO 0.7 (1.1-1.5); ALKALINE PHOSPHATASE 71 IU/L (46-116); ANION GAP 8 (8-16); ASPARTATE AMINO TRANSFERASE 27 U/L (10-37); BILIRUBIN,TOTAL 0.6 MG/DL (0.1-1.0); BLOOD UREA NITROGEN 13 MG/DL (7-18); CALCIUM 8.5 MG/DL (8.5-10.1); CHLORIDE 108 MMOL/L (99-107); CREATININE 1.08 MG/DL (0.40-0.90); GLUCOSE 113 MG/DL (70-104); MAGNESIUM 2.4 MG/DL (1.5-2.4); PHOSPHORUS 2.9 MG/DL (2.3-4.5); POTASSIUM 3.6 MMOL/L (3.5-5.1); SODIUM 139 MMOL/L (135-145); TOTAL CARBON DIOXIDE 23.1 MMOL/L (24-32); TOTAL PROTEIN 5.1 G/DL (6.4-8.2); eGFR 49 ML/MIN
[2018-02-18] MEDS: K, MAG and/or Phos replacement - Verify level? MC SCH (06:34)
[2018-02-18] MEDS: K and/or MAG REPLACEMENT MC SCH (06:35)
[2018-02-18] MEDS: Protein Shake (high protein) 240ml (8oz) cup PO SCH ×3 (08:00→18:35)
[2018-02-18] MEDS: megestrol acetate 400mg/10ml UD oral suspension PO SCH ×3 (09:44→20:28)
[2018-02-18] MEDS: famotidine 20mg tablet PO SCH ×2 (09:45→20:27)
[2018-02-18] MEDS: atorvastatin 20mg tablet PO SCH (09:45)
[2018-02-18] MEDS: amiodarone 200mg tablet PO SCH ×2 (09:45→20:27)
[2018-02-18] MEDS: levoTHYROXINE 25mcg tablet PO SCH (09:45)
[2018-02-18] MEDS: heparin, porcine 5000 units/ml vial SQ SCH ×2 (09:46→20:29)
[2018-02-18 16:29] LABS: CLARITY,URINE TURBID (Clear); COLOR,URINE STRAW (Yellow); GLUCOSE, URINE NEGATIVE (Neg); KETONES,URINE NEGATIVE (Neg); LEUKOCYTE ESTERASE ,URINE LARGE (Neg); NITRITES, URINE POSITIVE (Neg); OCCULT BLOOD,URINE LARGE (Neg); PH,URINE 5.5 (4.8-8.0); PROTEIN,URINE TRACE mg/dl (Neg); UROBILINOGEN,URINE 0.2 E.U/dL (0.2-1.0)
[2018-02-18 16:31] LABS: UA COLLECTION TYPE NON-SPECIFIED
[2018-02-18 16:36] LABS: BACTERIA,URINE 3+ /HPF (Neg); RBC,URINE 20-50 /HPF (0-2); SQUAMOUS EPITHELIAL CELL,UR NONE SEEN /LPF (FEW); WBC CLUMPS,URINE MANY /HPF (NEGATIVE); WBC,URINE TNTC /HPF (0-4)
[2018-02-18] MEDS ORDERED: levoFLOXACIN-Levaquin 500mg/D5 100 ML IV ONE (19:50)
[2018-02-18] MEDS: nortriptyline 10mg capsule PO SCH (20:27)
[2018-02-18] MEDS: pregabalin 25mg capsule PO SCH (20:27)
[2018-02-18] MEDS: temazepam 15mg capsule PO PRN (23:44)
[2018-02-19] VITALS (21 sets, daily range): BP systolic 94–155; BP diastolic 52–112
[2018-02-19 07:27] LABS: BASOPHILS % (AUTO) 0.2 % (0-1); EOSINOPHILS # (AUTO) 0.1 X10'3 (0-0.9); EOSINOPHILS % (AUTO) 2.2 % (0-6); HEMATOCRIT 33.5 % (35.0-45.0); HEMOGLOBIN 11.3 g/dl (12.0-16.0); LYMPHOCYTES # (AUTO) 1.8 X10'3 (1.1-4.8); LYMPHOCYTES % (AUTO) 27.7 % (21-51); MEAN CORPUSCULAR HEMOGLOBIN 32.5 PG (27.0-31.0); MEAN CORPUSCULAR HGB CONC 33.9 % (33.0-36.5); MEAN CORPUSCULAR VOLUME 95.8 FL (78-98); MEAN PLATELET VOLUME 8.6 FL (7.4-10.4); MONOCYTES # (AUTO) 0.7 X10'3 (0-0.9); MONOCYTES % (AUTO) 11.2 % (2-12); NEUTROPHILS # (AUTO) 3.8 X10'3 (1.8-7.7); NEUTROPHILS % (AUTO) 58.7 % (42-75); PLATELET COUNT 116 X10'3 (140-440); RED CELL DISTRIBUTION WIDTH 17.2 % (11.5-14.5); WHITE BLOOD COUNT 6.4 X10'3 (4.5-11.0)
[2018-02-19 07:44] LABS: ALANINE AMINOTRANSFERASE 15 U/L (12-78); ALBUMIN/GLOBULIN RATIO 0.6 (1.1-1.5); ALKALINE PHOSPHATASE 67 IU/L (46-116); ANION GAP 9 (8-16); ASPARTATE AMINO TRANSFERASE 21 U/L (10-37); BILIRUBIN,TOTAL 0.5 MG/DL (0.1-1.0); BLOOD UREA NITROGEN 14 MG/DL (7-18); BUN/CREATININE RATIO 12.7 (6.6-38.0); CALCIUM 8.5 MG/DL (8.5-10.1); CHLORIDE 110 MMOL/L (99-107); GLUCOSE 93 MG/DL (70-104); MAGNESIUM 1.8 MG/DL (1.5-2.4); PHOSPHORUS 2.6 MG/DL (2.3-4.5); POTASSIUM 3.8 MMOL/L (3.5-5.1); SODIUM 142 MMOL/L (135-145); TOTAL CARBON DIOXIDE 22.6 MMOL/L (24-32); TOTAL PROTEIN 5.1 G/DL (6.4-8.2); eGFR 48 ML/MIN
[2018-02-19] MEDS: K, MAG and/or Phos replacement - Verify level? MC SCH (08:00)
[2018-02-19] MEDS: atorvastatin 20mg tablet PO SCH (08:11)
[2018-02-19] MEDS: amiodarone 200mg tablet PO SCH ×2 (08:11→19:13)
[2018-02-19] MEDS: levoTHYROXINE 25mcg tablet PO SCH (08:11)
[2018-02-19] MEDS: megestrol acetate 400mg/10ml UD oral suspension PO SCH ×3 (08:11→20:14)
[2018-02-19] MEDS: famotidine 20mg tablet PO SCH ×2 (08:11→19:13)
[2018-02-19] MEDS: midodrine 5mg tablet PO SCH ×3 (08:12→23:25)
[2018-02-19] MEDS: heparin, porcine 5000 units/ml vial SQ SCH ×2 (08:12→19:12)
[2018-02-19] MEDS: levoFLOXACIN-Levaquin 250mg/D5 50 ML IV SCH (08:14)
[2018-02-19] MEDS: Protein Shake (high protein) 240ml (8oz) cup PO SCH ×3 (08:57→18:00)
[2018-02-19] MEDS: lactobacillus rhamnosus 10,000 MMU CELLS/CAPSULE PO SCH (19:13)
[2018-02-19] MEDS: nortriptyline 10mg capsule PO SCH (20:14)
[2018-02-19] MEDS: pregabalin 25mg capsule PO SCH (20:14)
[2018-02-19] MEDS: temazepam 15mg capsule PO PRN (23:25)
[2018-02-20] VITALS (16 sets, daily range): BP systolic 107–154; BP diastolic 52–97
[2018-02-20 05:37] LABS: BASOPHILS % (AUTO) 0.6 % (0-1); EOSINOPHILS # (AUTO) 0.1 X10'3 (0-0.9); EOSINOPHILS % (AUTO) 2.4 % (0-6); HEMATOCRIT 33.6 % (35.0-45.0); HEMOGLOBIN 11.4 g/dl (12.0-16.0); LYMPHOCYTES # (AUTO) 1.8 X10'3 (1.1-4.8); LYMPHOCYTES % (AUTO) 31.5 % (21-51); MEAN CORPUSCULAR HEMOGLOBIN 32.4 PG (27.0-31.0); MEAN CORPUSCULAR HGB CONC 33.8 % (33.0-36.5); MEAN CORPUSCULAR VOLUME 95.7 FL (78-98); MONOCYTES # (AUTO) 0.7 X10'3 (0-0.9); MONOCYTES % (AUTO) 12.7 % (2-12); NEUTROPHILS % (AUTO) 52.8 % (42-75); PLATELET COUNT 117 X10'3 (140-440); RED BLOOD COUNT 3.51 X10'6 (4.20-5.60); RED CELL DISTRIBUTION WIDTH 17.1 % (11.5-14.5); WHITE BLOOD COUNT 5.7 X10'3 (4.5-11.0)
[2018-02-20 05:48] LABS: ALANINE AMINOTRANSFERASE 17 U/L (12-78); ALBUMIN 2.1 G/DL (3.4-5.0); ALBUMIN/GLOBULIN RATIO 0.6 (1.1-1.5); ALKALINE PHOSPHATASE 68 IU/L (46-116); ANION GAP 6 (8-16); ASPARTATE AMINO TRANSFERASE 24 U/L (10-37); BILIRUBIN,TOTAL 0.4 MG/DL (0.1-1.0); BLOOD UREA NITROGEN 15 MG/DL (7-18); BUN/CREATININE RATIO 13.5 (6.6-38.0); CALCIUM 8.9 MG/DL (8.5-10.1); CHLORIDE 109 MMOL/L (99-107); CREATININE 1.11 MG/DL (0.40-0.90); GLUCOSE 105 MG/DL (70-104); MAGNESIUM 1.7 MG/DL (1.5-2.4); PHOSPHORUS 3.3 MG/DL (2.3-4.5); POTASSIUM 3.8 MMOL/L (3.5-5.1); SODIUM 141 MMOL/L (135-145); TOTAL CARBON DIOXIDE 26.1 MMOL/L (24-32); TOTAL PROTEIN 5.4 G/DL (6.4-8.2); eGFR 48 ML/MIN
[2018-02-20] MEDS: K, MAG and/or Phos replacement - Verify level? MC SCH (06:44)
[2018-02-20] MEDS: atorvastatin 20mg tablet PO SCH (07:24)
[2018-02-20] MEDS: megestrol acetate 400mg/10ml UD oral suspension PO SCH ×3 (07:24→20:16)
[2018-02-20] MEDS: famotidine 20mg tablet PO SCH ×2 (07:24→20:15)
[2018-02-20] MEDS: levoTHYROXINE 25mcg tablet PO SCH (07:24)
[2018-02-20] MEDS: amiodarone 200mg tablet PO SCH ×2 (07:24→20:16)
[2018-02-20] MEDS: heparin, porcine 5000 units/ml vial SQ SCH ×2 (07:24→20:18)
[2018-02-20] MEDS: lactobacillus rhamnosus 10,000 MMU CELLS/CAPSULE PO SCH ×2 (07:25→20:16)
[2018-02-20] MEDS: midodrine 5mg tablet PO SCH ×2 (07:25→15:47)
[2018-02-20] MEDS: levoFLOXACIN-Levaquin 250mg/D5 50 ML IV SCH (07:25)
[2018-02-20] MEDS: Protein Shake (high protein) 240ml (8oz) cup PO SCH ×3 (08:05→18:00)
[2018-02-20] MEDS ORDERED: heparin sodium, porcine/PF 100unit/ml 5ML syringe IV SCH (11:30)
[2018-02-20] MEDS: HYDROcodone/acetaminophen 5mg/325mg tablet PO PRN (15:48)
[2018-02-20] MEDS: temazepam 15mg capsule PO PRN (20:15)
[2018-02-20] MEDS: pregabalin 25mg capsule PO SCH (20:15)
[2018-02-20] MEDS: nortriptyline 10mg capsule PO SCH (20:15)
[2018-02-21] MEDS: midodrine 5mg tablet PO SCH ×3 (01:02→16:18)
[2018-02-21] MEDS: temazepam 15mg capsule PO PRN (01:06)
[2018-02-21 03:00] VITALS: BP 112/63
[2018-02-21 04:38] LABS: BASOPHILS % (AUTO) 0.8 % (0-1); EOSINOPHILS # (AUTO) 0.1 X10'3 (0-0.9); EOSINOPHILS % (AUTO) 2.3 % (0-6); HEMATOCRIT 29.8 % (35.0-45.0); HEMOGLOBIN 10.2 g/dl (12.0-16.0); LYMPHOCYTES # (AUTO) 1.9 X10'3 (1.1-4.8); LYMPHOCYTES % (AUTO) 35.6 % (21-51); MEAN CORPUSCULAR HEMOGLOBIN 32.5 PG (27.0-31.0); MEAN CORPUSCULAR HGB CONC 34.2 % (33.0-36.5); MEAN CORPUSCULAR VOLUME 95.2 FL (78-98); MEAN PLATELET VOLUME 9.4 FL (7.4-10.4); MONOCYTES # (AUTO) 0.6 X10'3 (0-0.9); MONOCYTES % (AUTO) 11.7 % (2-12); NEUTROPHILS # (AUTO) 2.7 X10'3 (1.8-7.7); NEUTROPHILS % (AUTO) 49.6 % (42-75); PLATELET COUNT 120 X10'3 (140-440); RED BLOOD COUNT 3.13 X10'6 (4.20-5.60); RED CELL DISTRIBUTION WIDTH 16.9 % (11.5-14.5); WHITE BLOOD COUNT 5.4 X10'3 (4.5-11.0)
[2018-02-21 05:02] LABS: ALANINE AMINOTRANSFERASE 17 U/L (12-78); ALBUMIN 2.1 G/DL (3.4-5.0); ALBUMIN/GLOBULIN RATIO 0.7 (1.1-1.5); ALKALINE PHOSPHATASE 61 IU/L (46-116); ANION GAP 8 (8-16); ASPARTATE AMINO TRANSFERASE 22 U/L (10-37); BILIRUBIN,TOTAL 0.4 MG/DL (0.1-1.0); BLOOD UREA NITROGEN 16 MG/DL (7-18); CALCIUM 8.7 MG/DL (8.5-10.1); CHLORIDE 109 MMOL/L (99-107); CREATININE 1.14 MG/DL (0.40-0.90); GLUCOSE 111 MG/DL (70-104); PHOSPHORUS 3.6 MG/DL (2.3-4.5); POTASSIUM 4.1 MMOL/L (3.5-5.1); SODIUM 143 MMOL/L (135-145); TOTAL CARBON DIOXIDE 26.1 MMOL/L (24-32); TOTAL PROTEIN 5.2 G/DL (6.4-8.2); eGFR 46 ML/MIN
[2018-02-21 07:00] VITALS: BP 135/62
[2018-02-21] MEDS: Protein Shake (high protein) 240ml (8oz) cup PO SCH ×2 (08:00→13:28)
[2018-02-21] MEDS: megestrol acetate 400mg/10ml UD oral suspension PO SCH ×2 (08:00→13:21)
[2018-02-21] MEDS: K, MAG and/or Phos replacement - Verify level? MC SCH (08:00)
[2018-02-21] MEDS: famotidine 20mg tablet PO SCH (08:00)
[2018-02-21] MEDS: levoTHYROXINE 25mcg tablet PO SCH (08:00)
[2018-02-21] MEDS: lactobacillus rhamnosus 10,000 MMU CELLS/CAPSULE PO SCH (08:00)
[2018-02-21] MEDS: atorvastatin 20mg tablet PO SCH (08:00)
[2018-02-21] MEDS: heparin, porcine 5000 units/ml vial SQ SCH (08:00)
[2018-02-21] MEDS: amiodarone 200mg tablet PO SCH (08:00)
[2018-02-21] MEDS: levoFLOXACIN-Levaquin 250mg/D5 50 ML IV SCH (08:00)
[2018-02-21] MEDS ORDERED: MIDO5TAB PO (14:03)
[2018-02-21] MEDS ORDERED: HEPA500017 SQ (14:03)
[2018-02-21] MEDS ORDERED: ATI1T PO (14:03)
[2018-02-21] MEDS ORDERED: TEMA15CA PO (14:03)
[2018-02-21] MEDS ORDERED: AMIO200T57 PO (14:03)
[2018-02-21] MEDS ORDERED: LACT1CAP26 PO (14:03)
[2018-02-21] MEDS ORDERED: LEVO25TA7 PO (14:03)
[2018-02-21] MEDS ORDERED: LEVO500T2 PO (14:03)
[2018-02-21] MEDS ORDERED: MEGE400O2 PO (14:03)
== END 2018-02-21 16:45 | DRG 314 ==
LOC: ER 14:38 → ED HOLD 21:47 → MED 3N 23:30 → PCU 3S 02-13 23:09 → CICU 2S 02-14 07:59 → PCU 3S 02-20 13:50 → UNDODISIN 02-21 16:45
PROVIDERS: ADMIT Internal Medicine; ATTEND Internal Medicine Critical Care Medicine
PROC: BW211ZZ Computerized Tomography (CT Scan) of Abdomen and Pelvis using Low Osmolar Contrast (ICD-10-PCS; 2018-02-11)
PROC: 30233N1 Transfusion of Nonautologous Red Blood Cells into Peripheral Vein, Percutaneous Approach (ICD-10-PCS; principal; 2018-02-12)
PROC: 5A09357 Assistance with Respiratory Ventilation, Less than 24 Consecutive Hours, Continuous Positive Airway Pressure (ICD-10-PCS; 2018-02-13)
PROC: 02HV33Z Insertion of Infusion Device into Superior Vena Cava, Percutaneous Approach (ICD-10-PCS; 2018-02-15)
DX: I95.9 Hypotension, unspecified (principal); N17.0 Acute kidney failure with tubular necrosis; J81.1 Chronic pulmonary edema; J90 Pleural effusion, not elsewhere classified; E44.0 Moderate protein-calorie malnutrition; E87.2 Acidosis; I48.91 Unspecified atrial fibrillation; G62.9 Polyneuropathy, unspecified; E83.42 Hypomagnesemia; I80.8 Phlebitis and thrombophlebitis of other sites; L03.114 Cellulitis of left upper limb; D64.9 Anemia, unspecified; E86.9 Volume depletion, unspecified; E86.1 Hypovolemia; E87.6 Hypokalemia; E03.9 Hypothyroidism, unspecified; E78.5 Hyperlipidemia, unspecified; F41.9 Anxiety disorder, unspecified; I12.9 Hypertensive chronic kidney disease with stage 1 through stage 4 chronic kidney disease, or unspecified chronic kidney disease; E66.9 Obesity, unspecified; N18.3 Chronic kidney disease, stage 3 (moderate); K21.9 Gastro-esophageal reflux disease without esophagitis; K52.9 Noninfective gastroenteritis and colitis, unspecified; Z90.710 Acquired absence of both cervix and uterus; Z90.49 Acquired absence of other specified parts of digestive tract; Z79.899 Other long term (current) drug therapy; Z87.891 Personal history of nicotine dependence; Z85.43 Personal history of malignant neoplasm of ovary; Z86.711 Personal history of pulmonary embolism; Z92.3 Personal history of irradiation; Z92.21 Personal history of antineoplastic chemotherapy; Z68.27 Body mass index [BMI] 27.0-27.9, adult
CPT/HCPCS: 36415; 36600; 71045; 74176; 76856; 80053; 81001; 82272; 82803; 82948; 83036; 83540; 83550; 83605; 83735; 84100; 84145; 84439; 84443; 84484; 85018; 85025; 85610; 85730; 86304; 86885; 86900; 86901; 86920; 87040; 87045; 87046; 87070; 87077; 87088; 87186; 87324; 87449; 89055; 92616; 93005; 93306; 94640; 94660; 94760; 96361; 96365; 97110; 97116; 97162; 97530; 99285; A4315; A6209; A6212; A6213; A6257; A6402; J0282; J1160; J1265; J1642; J1644; J1940; J1956; J2060; J2405; J2543; J3411; J3475; J3480; J3490; J7030; P9016; P9047; Q9963

== ENCOUNTER 2018-11-18 12:40 | Inpatient (IN) | payer MEDICARE, BC ==
[~2018-11-18] VITALS: Ht 170.2 cm; Wt 65.9 kg
[~2018-11-18 12:40] MED LIST: ATOR80TA PO; FAMO20TA8 PO; JOINT JUICE; LEVO25TA7 PO; MIDO5TAB PO; ONDA4TAB12 PO; POTA10TA19 PO; PROC10TA10 PO; TRAM50TA2 PO; [UNRECOGNIZED DRUG - REMARK]
[2018-11-18] MEDS ORDERED: diltiazem 5mg/ml 5ml inj. IV ONE ×2 (12:50→13:20)
[2018-11-18 12:56] LABS: ABG BASE EXCESS -8.3 mmol/L (-2.0-3.0); ABG OXYGEN SATURATION 98.9 % (95-98); ABG PCO2 (T) 34.6 mmHg (32.0-45.0); ABG PH (T) 7.311 (7.350-7.450); ABG PO2 (T) 158.7 mmHg (83-108); ALLEN'S TEST Positive; FCOHb 0.8 % (0.5-1.5); FMetHb 0.3 % (0.3-1.12); FO2Hb 97.8 % (94-100); MINUTE VOLUME 30 L/min; PATIENT TEMPERATURE 37.2; RESPIRATORY RATE 18 b/min; RESPIRATORY RATE (OBSERVED) 49 b/min; TIDAL VOLUME 618 mL; TOTAL HEMOGLOBIN 8.9 G/dl (12.0-16.0)
[2018-11-18 13:09] LABS: BASOPHILS % (AUTO) 0.1 % (0-1); EOSINOPHILS # (AUTO) 0.1 X10'3 (0-0.9); EOSINOPHILS % (AUTO) 0.9 % (0-6); HEMATOCRIT 26.1 % (35.0-45.0); HEMOGLOBIN 8.6 g/dl (12.0-16.0); LYMPHOCYTES # (AUTO) 2.3 X10'3 (1.1-4.8); LYMPHOCYTES % (AUTO) 17.2 % (21-51); MEAN CORPUSCULAR HEMOGLOBIN 36.4 PG (27.0-31.0); MEAN CORPUSCULAR VOLUME 110.2 FL (78-98); MEAN PLATELET VOLUME 6.9 FL (7.4-10.4); MONOCYTES # (AUTO) 0.1 X10'3 (0-0.9); MONOCYTES % (AUTO) 0.5 % (2-12); NEUTROPHILS # (AUTO) 11.1 X10'3 (1.8-7.7); NEUTROPHILS % (AUTO) 81.3 % (42-75); PLATELET COUNT 303 X10'3 (140-440); RED BLOOD COUNT 2.36 X10'6 (4.20-5.60); RED CELL DISTRIBUTION WIDTH 24.6 % (11.5-14.5); WHITE BLOOD COUNT 13.6 X10'3 (4.5-11.0)
[2018-11-18 13:29] LABS: ALANINE AMINOTRANSFERASE 21 U/L (12-78); ALBUMIN 2.8 G/DL (3.4-5.0); ALBUMIN/GLOBULIN RATIO 0.6 (1.1-1.5); ALKALINE PHOSPHATASE 142 IU/L (46-116); ANION GAP 14 (8-16); ASPARTATE AMINO TRANSFERASE 59 U/L (10-37); BILIRUBIN,TOTAL 0.9 MG/DL (0.1-1.0); BLOOD UREA NITROGEN 14 MG/DL (7-18); BUN/CREATININE RATIO 10.1 (6.6-38.0); CALCIUM 8.7 MG/DL (8.5-10.1); CHLORIDE 95 MMOL/L (99-107); CREATININE 1.39 MG/DL (0.40-0.90); GLUCOSE 147 MG/DL (70-104); POTASSIUM 4.1 MMOL/L (3.5-5.1); SODIUM 130 MMOL/L (135-145); TOTAL CARBON DIOXIDE 20.8 MMOL/L (24-32); TOTAL PROTEIN 7.2 G/DL (6.4-8.2); eGFR 37 ML/MIN
[2018-11-18 13:32] LABS: D-DIMER 3.97 MG/L FEU (0-0.50); INR 1.2 INR; PARTIAL THROMBOPLASTIN TIME 35 SECONDS (22-32); PROTHROMBIN TIME 12.2 SECONDS (9.0-12.0)
[2018-11-18] MEDS ORDERED: levoFLOXACIN-Levaquin 500mg/D5 100 ML IV ONE (13:35)
[2018-11-18 13:38] LABS: MAGNESIUM 1.3 MG/DL (1.5-2.4)
[2018-11-18] MEDS ORDERED: calcium gluconate inj. 2 GM in normal saline 100ml IV soln 80 ML IV ONE (13:50)
[2018-11-18 13:53] LABS: CLARITY,URINE SLIGHTLY CLOUDY (Clear); COLOR,URINE YELLOW (Yellow); GLUCOSE, URINE NEGATIVE (Neg); KETONES,URINE NEGATIVE (Neg); LEUKOCYTE ESTERASE ,URINE NEGATIVE (Neg); NITRITES, URINE NEGATIVE (Neg); OCCULT BLOOD,URINE SMALL (Neg); PH,URINE 5.5 (4.8-8.0); PROTEIN,URINE 30 mg/dl (Neg); UROBILINOGEN,URINE 0.2 E.U/dL (0.2-1.0)
[2018-11-18 13:59] LABS: UA COLLECTION TYPE STRAIGHT CATH
[2018-11-18] MEDS ORDERED: normal saline 500ml IV soln 1,000 ML IV ONE ×2 (14:00→16:00)
[2018-11-18 14:02] LABS: BACTERIA,URINE NONE SEEN /HPF (Neg); HYALINE CASTS 0-3 /LPF (NEGATIVE); MUCUS STRANDS FEW /LPF (Neg); RBC,URINE 0-2 /HPF (0-2); SQUAMOUS EPITHELIAL CELL,UR NONE SEEN /LPF (FEW); TRANSITIONAL EPI CELLS,URINE FEW /HPF; WBC,URINE 0-4 /HPF (0-4)
--- NOTE | 2018-11-18 14:02 | NUR ---
BP CHECKED SBP 70'S CHECKED 2X,DR. STAPLETON AWARE,ORDERED CALCIUM GLUCONATE HOWEVER STILL NOT READY PHARMACY IS STILL MAKING IT. OBTAINED AN ORDER TO ADMIN 500NS.
[2018-11-18] MEDS ORDERED: albuterol 2.5 mg/0.5ml nebule NEB STA (17:03)
[2018-11-18] MEDS ORDERED: normal saline 1000ML IV soln IVB ONE (18:25)
[2018-11-18] MEDS ORDERED: albuterol 2.5 MG/3 ML nebule NEB ONE (18:35)
[2018-11-18] MEDS ORDERED: enoxaparin 100mg/ml syringe SUBCUT ONE (18:45)
[2018-11-18] MEDS ORDERED: iohexol 350MG/ML 100ml bottle IV ONE (18:53)
[2018-11-18] MEDS ORDERED: magnesium 2GM in 50ml NS 50 ML IV SCH (19:05)
[2018-11-18] MEDS ORDERED: magnesium 2GM in 50ml NS 50 ML IV ONE (19:09)
--- NOTE | 2018-11-18 19:28 | NUR ---
pt vomited green liquid and bipap mask immediately removed. patient placed on 6 liters nasal cannula. pt vomited about 100 ml green liquid. pt was on nc at 6 liters for about 5 minutes and her spo2 was 86%; returned to bipap 16/8 fio2 70%
--- NOTE | 2018-11-18 19:48 | NUR ---
back from cta of chest; dr ni aware of creatinine and failed nc trial
[2018-11-18] MEDS ORDERED: diltiazem-D5W 125mg/125ml 125 ML IV PRN (20:59)
[2018-11-18] MEDS ORDERED: acetaminophen 325mg tablet PO PRN (21:35)
[2018-11-18] MEDS ORDERED: potassium Cl 40MEQ/NS 500ml 500 ML IV PRN (21:35)
[2018-11-18] MEDS: K, MAG and/or Phos replacement - Verify level? MC SCH (21:35)
[2018-11-18] MEDS ORDERED: morphine 4 MG/ML inj SYRINge IV PRN ×2 (21:35)
[2018-11-18] MEDS: normal saline 1000ml 1,000 ML IV SCH (22:17)
--- NOTE | 2018-11-18 22:18 | NUR ---
SPOKE WITH DR MCCULLOUGH REGARDING PARAMETERS FOR CARDIZEM GTT: WOULD LIKE HEART RATE UNDER 110 AND HOLD CARDIZEM GTT FOR SYSTOLIC UNDER 100
[2018-11-19] VITALS (24 sets, daily range): BP systolic 87–115; BP diastolic 50–90
--- NOTE | 2018-11-19 00:38 | NUR ---
patient to floor via [place] [facility] accompanied by [facility] Latoya and RT, patient alert and oriented on bipap at 55% sating 100%, hr 111-117 systolic in the low 100's. Vital signs stable,transferred pt to bed from [facility] with no issues, skin checked no issues found, optifoam to coccyx. Cardizem running at 5ml/hr. no other iv's running at this time. will continue to monitor
[2018-11-19] MEDS: midodrine 5mg tablet PO SCH ×4 (01:05→22:18)
[2018-11-19 01:10] LABS: ABG HCO3 21.8 mmol/L (22.0-26.0); ABG OXYGEN SATURATION 97.9 % (95-98); ABG PCO2 (T) 31.4 mmHg (32.0-45.0); ABG PH (T) 7.458 (7.350-7.450); ALLEN'S TEST Positive; FCOHb 0.8 % (0.5-1.5); FMetHb 0.3 % (0.3-1.12); FO2Hb 96.8 % (94-100); MINUTE VOLUME 16 L/min; PATIENT TEMPERATURE 36.7; RESPIRATORY RATE 16 b/min; RESPIRATORY RATE (OBSERVED) 27 b/min; TOTAL HEMOGLOBIN 6.4 G/dl (12.0-16.0)
--- NOTE | 2018-11-19 02:05 | NUR ---
systolic blood pressure 96 stopped cardizem per parameters to hold if systolic below 100, hr ranging from 108-113, will continue to monitor
[2018-11-19 02:53] LABS: BASOPHILS % (AUTO) 0.1 % (0-1); EOSINOPHILS # (AUTO) 0.1 X10'3 (0-0.9); HEMATOCRIT 23.8 % (35.0-45.0); LYMPHOCYTES # (AUTO) 0.8 X10'3 (1.1-4.8); LYMPHOCYTES % (AUTO) 7.4 % (21-51); MEAN CORPUSCULAR HEMOGLOBIN 36.8 PG (27.0-31.0); MEAN CORPUSCULAR HGB CONC 33.7 % (33.0-36.5); MEAN CORPUSCULAR VOLUME 109.3 FL (78-98); MEAN PLATELET VOLUME 6.6 FL (7.4-10.4); MONOCYTES # (AUTO) 0.1 X10'3 (0-0.9); MONOCYTES % (AUTO) 0.5 % (2-12); NEUTROPHILS # (AUTO) 9.6 X10'3 (1.8-7.7); PLATELET COUNT 199 X10'3 (140-440); RED BLOOD COUNT 2.18 X10'6 (4.20-5.60); RED CELL DISTRIBUTION WIDTH 24.6 % (11.5-14.5); WHITE BLOOD COUNT 10.6 X10'3 (4.5-11.0)
[2018-11-19 03:01] LABS: ALANINE AMINOTRANSFERASE 19 U/L (12-78); ALBUMIN 2.3 G/DL (3.4-5.0); ALBUMIN/GLOBULIN RATIO 0.6 (1.1-1.5); ALKALINE PHOSPHATASE 118 IU/L (46-116); ANION GAP 11 (8-16); ASPARTATE AMINO TRANSFERASE 55 U/L (10-37); BILIRUBIN,TOTAL 0.7 MG/DL (0.1-1.0); BLOOD UREA NITROGEN 13 MG/DL (7-18); BUN/CREATININE RATIO 13.1 (6.6-38.0); CALCIUM 8.6 MG/DL (8.5-10.1); CHLORIDE 99 MMOL/L (99-107); CREATININE 0.99 MG/DL (0.40-0.90); GLUCOSE 87 MG/DL (70-104); MAGNESIUM 1.6 MG/DL (1.5-2.4); PHOSPHORUS 3.4 MG/DL (2.3-4.5); POTASSIUM 3.9 MMOL/L (3.5-5.1); SODIUM 132 MMOL/L (135-145); TOTAL CARBON DIOXIDE 22.2 MMOL/L (24-32); TOTAL PROTEIN 6.3 G/DL (6.4-8.2); eGFR 54 ML/MIN
[2018-11-19 03:08] LABS: INR 1.3 INR; PARTIAL THROMBOPLASTIN TIME 62 SECONDS (22-32); PROTHROMBIN TIME 13.3 SECONDS (9.0-12.0)
--- NOTE | 2018-11-19 06:17 | NUR ---
Problems reprioritized. Patient report given,Kirstin JOSEPH questions answered & plan of care reviewed with .
--- NOTE | 2018-11-19 06:18 | NUR ---
Problems reprioritized. Patient report given,Pj JOSEPH questions answered & plan of care reviewed with .
--- NOTE | 2018-11-19 06:30 | NUR ---
Patient in room CICU 2013. I have received report from LINDA JOSEPH and had the opportunity to ask questions and assume patient care.
[2018-11-19] MEDS: K, MAG and/or Phos replacement - Verify level? MC SCH (08:00)
[2018-11-19] MEDS: docusate sod 100mg capsule PO SCH ×3 (08:00→20:00)
[2018-11-19] MEDS: pantoprazole 40mg Tablet.DR PO SCH (09:50)
[2018-11-19] MEDS: levoFLOXACIN-Levaquin 500mg/D5 100 ML IV SCH (09:51)
[2018-11-19] MEDS: levoTHYROXINE 25mcg tablet PO SCH (09:53)
[2018-11-19] MEDS ORDERED: KETO10DR3 EACHEYE (10:45)
[2018-11-19] MEDS: KETOTIFEN FUMARATE 0.035% EACHEYE PRN ×2 (12:50→16:57)
[2018-11-19] MEDS ORDERED: DOPamine 400mg/D5W 250ml 250 ML IV ONE (13:31)
[2018-11-19] MEDS: amiodarone/D5 360MG/200ML BAG 200 ML IV SCH ×2 (13:36→20:12)
[2018-11-19] MEDS ORDERED: amiodarone 150mg/dext, iso-os 100 ML IV ONE ×2 (13:39→13:40)
[2018-11-19] MEDS ORDERED: amiodarone/D5 360MG/200ML BAG 200 ML IV ONE (13:40)
--- NOTE | 2018-11-19 15:47 | NUR ---
Patient on 5l NC most of the day. Noted to return to afib with rapid ventricular rate at about 1300. Cardizem ordered but not running. Turned on cardizem drip at 5, with no relief on rate change, changed to 10 per protocol and noted patient blood pressure drop. Low BP 70/40s, patient awake, but feeling more tired and lethargic. Cardizem off. Dr. Mantilla called and at bedside. Ordered Dopamine, and amiodarone. Dopamine held per MD order, but to be used if BP still low after loading dose of amiodarone. Amiodarone given per protocol and patients rate slowly coming down. Patient converted to sinus rhythm at this time, and BP stable with MAP above 65.
[2018-11-19] MEDS ORDERED: DOPamine 400mg/D5W 250ml 250 ML IV PRN (16:10)
[2018-11-19] MEDS: normal saline 1000ml 1,000 ML IV SCH (17:34)
--- NOTE | 2018-11-19 18:31 | NUR ---
Problems reprioritized. Patient report given, questions answered & plan of care reviewed with Eloise JOSEPH.
[2018-11-19] MEDS: HYDROcodone/acetaminophen 10/325mg tab PO PRN (20:11)
--- NOTE | 2018-11-19 22:02 | NUR ---
1830..Patient in room CICU 2012. I have received report from aVnesa JOSEPH and had the opportunity to ask questions and assume patient care.
--- NOTE | 2018-11-19 22:04 | NUR ---
1914..Pt very demanding and impatient, when asked to bundle requests/wants / and needs, stated "why".
--- NOTE | 2018-11-19 22:06 | NUR ---
1999..Assessment as noted, medicated for complaints of back pain and general aches, with norco per MD orders.
--- NOTE | 2018-11-19 22:07 | NUR ---
2100..Pain meds appears effective as pt is resting quietly with eyes closed.
[2018-11-19] MEDS: atorvastatin 20mg tablet PO SCH (22:18)
--- NOTE | 2018-11-19 23:39 | NUR ---
2300..Resting quietly, continues to refuse to be repositioned, no other changes noted.
[2018-11-20] VITALS (24 sets, daily range): BP systolic 84–112; BP diastolic 48–71
[2018-11-20] MEDS: amiodarone/D5 360MG/200ML BAG 200 ML IV SCH ×4 (01:44→20:09)
--- NOTE | 2018-11-20 06:04 | NUR ---
0400..No changes noted.
--- NOTE | 2018-11-20 06:26 | NUR ---
0625..Problems reprioritized. Patient report given, questions answered & plan of care reviewed with Mercy JOSEPH.
--- NOTE | 2018-11-20 06:30 | NUR ---
Patient in room CICU 2013. I have received report from leif and had the opportunity to ask questions and assume patient care.
[2018-11-20] MEDS: docusate sod 100mg capsule PO SCH ×2 (06:44→20:00)
[2018-11-20] MEDS: K, MAG and/or Phos replacement - Verify level? MC SCH (08:00)
[2018-11-20] MEDS: levoFLOXACIN-Levaquin 500mg/D5 100 ML IV SCH (08:31)
[2018-11-20] MEDS: pantoprazole 40mg Tablet.DR PO SCH (08:31)
[2018-11-20] MEDS: midodrine 5mg tablet PO SCH ×3 (08:31→23:52)
[2018-11-20] MEDS: levoTHYROXINE 25mcg tablet PO SCH (08:32)
[2018-11-20] MEDS: KETOTIFEN FUMARATE 0.035% EACHEYE PRN (08:37)
[2018-11-20 09:28] LABS: BASOPHILS % (AUTO) 0 % (0-1); EOSINOPHILS % (AUTO) 1.1 % (0-6); HEMOGLOBIN 7.1 g/dl (12.0-16.0); LYMPHOCYTES % (AUTO) 23.9 % (21-51); MEAN CORPUSCULAR HEMOGLOBIN 36.3 PG (27.0-31.0); MEAN CORPUSCULAR HGB CONC 33.3 % (33.0-36.5); MEAN PLATELET VOLUME 7.1 FL (7.4-10.4); MONOCYTES % (AUTO) 0.5 % (2-12); NEUTROPHILS # (AUTO) 3.1 X10'3 (1.8-7.7); NEUTROPHILS % (AUTO) 74.5 % (42-75); PLATELET COUNT 127 X10'3 (140-440); RED BLOOD COUNT 1.95 X10'6 (4.20-5.60); RED CELL DISTRIBUTION WIDTH 24.7 % (11.5-14.5); WHITE BLOOD COUNT 4.2 X10'3 (4.5-11.0)
[2018-11-20 09:39] LABS: C DIFFICILE TOXINS A&B NEGATIVE (Neg)
[2018-11-20 09:40] LABS: C DIFF ANTIGEN NEGATIVE (NEGATIVE); C DIFF SPECIMEN=DIARRHEA? ACCEPTABLE
[2018-11-20 09:52] LABS: ALANINE AMINOTRANSFERASE 19 U/L (12-78); ALBUMIN/GLOBULIN RATIO 0.5 (1.1-1.5); ALKALINE PHOSPHATASE 106 IU/L (46-116); ANION GAP 12 (8-16); ASPARTATE AMINO TRANSFERASE 59 U/L (10-37); BILIRUBIN,TOTAL 0.3 MG/DL (0.1-1.0); BLOOD UREA NITROGEN 15 MG/DL (7-18); BUN/CREATININE RATIO 16.3 (6.6-38.0); CHLORIDE 100 MMOL/L (99-107); CREATININE 0.92 MG/DL (0.40-0.90); GLUCOSE 97 MG/DL (70-104); MAGNESIUM 1.6 MG/DL (1.5-2.4); PHOSPHORUS 3.3 MG/DL (2.3-4.5); POTASSIUM 3.4 MMOL/L (3.5-5.1); SODIUM 133 MMOL/L (135-145); TOTAL PROTEIN 5.7 G/DL (6.4-8.2); eGFR 59 ML/MIN
[2018-11-20 09:54] LABS: HEMATOCRIT 21.2 % (35.0-45.0)
[2018-11-20 10:03] LABS: INR 1.3 INR; PARTIAL THROMBOPLASTIN TIME 47 SECONDS (22-32); PROTHROMBIN TIME 12.9 SECONDS (9.0-12.0)
--- NOTE | 2018-11-20 11:00 | NUR ---
pt incontinent of urine- doesnt seem to be aware. pt forgetful- not thinking clearly she states. rectal tube in place- brown liquid stool. cdiff negative. denies pain.
[2018-11-20 11:46] LABS: ANISOCYTOSIS 3+; PLATELET ESTIMATE DECREASED
[2018-11-20 11:47] LABS: MICROCYTOSIS 1+
--- NOTE | 2018-11-20 13:00 | NUR ---
up in chair x 2 hrs- tolerated fair- c/o bottom hurting- PT back to bed. emesis of 75 cc- zofran given. and grand-daughter at bs. gd assisting with needs. refusing most of breakfast and now lunch paged retrofit installer re supplements- was mostly not eatingn at home either- just protein supp. and oatmeal.
[2018-11-20] MEDS: ondansetron/PF 4mg/2ml inj IV PRN (13:18)
[2018-11-20] MEDS: normal saline 1000ml 1,000 ML IV SCH ×2 (13:34→17:16)
[2018-11-20] MEDS: HYDROcodone/acetaminophen 10/325mg tab PO PRN ×2 (13:55→23:54)
--- NOTE | 2018-11-20 15:35 | NUR ---
Pt with low appetite, RN requests visit by RD. Pt seen at bedside endorses a low appetite which is evident as documented PO intake is refusals throughout LOS. Food preferences obtained, pt would like oatmeal with breakfast, and prefers chicken broth and no veggie or beef broth. Although pt states she is lactose intolerant, she believes she might be able to eat mashed potatoes. Pt agreeable to Ensure Enlive to optimize PO intake while appetite is low, MD arriola. Food preferences d/w dietary. RD contact information given to pt if she should have any further questions or concerns. Will continue to follow and honor food preferences to optimize PO intake. Addendum: 11/20/18 at [address] Amended: Links added.
--- NOTE | 2018-11-20 16:11 | NUR ---
norco given for pain buttocks area while up in chair- after family left- to sleep.
[2018-11-20] MEDS: lactose-reduced food (Ensure Enlive) - 237ml bottle PO SCH (18:00)
[2018-11-20] MEDS: atorvastatin 20mg tablet PO SCH (20:09)
[2018-11-21] VITALS (24 sets, daily range): BP systolic 78–112; BP diastolic 42–64
[2018-11-21] MEDS: albuterol 2.5 MG/3 ML nebule NEB PRN (00:04)
[2018-11-21] MEDS: amiodarone/D5 360MG/200ML BAG 200 ML IV SCH ×4 (02:00→20:12)
[2018-11-21 05:00] LABS: BASOPHILS % (AUTO) 0.3 % (0-1); EOSINOPHILS % (AUTO) 0.8 % (0-6); HEMOGLOBIN 7.1 g/dl (12.0-16.0); LYMPHOCYTES # (AUTO) 0.9 X10'3 (1.1-4.8); MEAN CORPUSCULAR HEMOGLOBIN 36.7 PG (27.0-31.0); MEAN CORPUSCULAR HGB CONC 33.6 % (33.0-36.5); MEAN CORPUSCULAR VOLUME 109.3 FL (78-98); MEAN PLATELET VOLUME 6.7 FL (7.4-10.4); MONOCYTES % (AUTO) 0.8 % (2-12); NEUTROPHILS # (AUTO) 1.7 X10'3 (1.8-7.7); NEUTROPHILS % (AUTO) 63.1 % (42-75); PLATELET COUNT 109 X10'3 (140-440); RED BLOOD COUNT 1.95 X10'6 (4.20-5.60); RED CELL DISTRIBUTION WIDTH 25.3 % (11.5-14.5); WHITE BLOOD COUNT 2.6 X10'3 (4.5-11.0)
[2018-11-21 05:22] LABS: ALANINE AMINOTRANSFERASE 18 U/L (12-78); ALBUMIN/GLOBULIN RATIO 0.5 (1.1-1.5); ALKALINE PHOSPHATASE 99 IU/L (46-116); ANION GAP 13 (8-16); ASPARTATE AMINO TRANSFERASE 57 U/L (10-37); BILIRUBIN,TOTAL 0.3 MG/DL (0.1-1.0); BLOOD UREA NITROGEN 15 MG/DL (7-18); BUN/CREATININE RATIO 17.2 (6.6-38.0); CALCIUM 7.9 MG/DL (8.5-10.1); CHLORIDE 100 MMOL/L (99-107); CREATININE 0.87 MG/DL (0.40-0.90); GLUCOSE 93 MG/DL (70-104); MAGNESIUM 1.5 MG/DL (1.5-2.4); PHOSPHORUS 3.2 MG/DL (2.3-4.5); POTASSIUM 3.1 MMOL/L (3.5-5.1); SODIUM 133 MMOL/L (135-145); TOTAL CARBON DIOXIDE 20.1 MMOL/L (24-32); TOTAL PROTEIN 5.7 G/DL (6.4-8.2); eGFR 63 ML/MIN
[2018-11-21 05:24] LABS: INR 1.2 INR; PARTIAL THROMBOPLASTIN TIME 47 SECONDS (22-32); PROTHROMBIN TIME 12.3 SECONDS (9.0-12.0)
[2018-11-21 05:30] LABS: HEMATOCRIT 21.3 % (35.0-45.0)
[2018-11-21 06:23] LABS: ANISOCYTOSIS 3+; PLATELET ESTIMATE DECREASED; TOTAL CELLS COUNTED 100; TOXIC GRANULATION 1+
--- NOTE | 2018-11-21 06:31 | NUR ---
Patient in room CICU 2013. I have received report from Eddie JOSEPH and had the opportunity to ask questions and assume patient care.
[2018-11-21] MEDS: midodrine 5mg tablet PO SCH ×3 (07:13→23:46)
[2018-11-21] MEDS: potassium Cl 40MEQ/NS 500ml 500 ML IV PRN (07:13)
[2018-11-21] MEDS: pantoprazole 40mg Tablet.DR PO SCH (07:13)
[2018-11-21] MEDS: levoTHYROXINE 25mcg tablet PO SCH (07:14)
[2018-11-21] MEDS: K, MAG and/or Phos replacement - Verify level? MC SCH (07:36)
[2018-11-21] MEDS: docusate sod 100mg capsule PO SCH ×2 (07:37→20:15)
[2018-11-21] MEDS: lactose-reduced food (Ensure Enlive) - 237ml bottle PO SCH ×3 (08:00→18:30)
[2018-11-21] MEDS: ondansetron/PF 4mg/2ml inj IV PRN ×2 (10:07→16:04)
[2018-11-21] MEDS: levoFLOXACIN 500mg tablet PO SCH (11:23)
[2018-11-21] MEDS: normal saline 1000ml 1,000 ML IV SCH (16:04)
[2018-11-21] MEDS: KETOTIFEN FUMARATE 0.035% EACHEYE PRN (16:31)
--- NOTE | 2018-11-21 18:30 | NUR ---
Patient in room CICU 2012. I have received report from Alfreda JOSEPH and had the opportunity to ask questions and assume patient care. Patient resting in bed on BiPAP, awake and alert/oriented x4. Patient saturating at 100% on 35% FIO2, breathing at 22 breaths/min evenly and unlabored. BP 104/50, HR in low 100s in sinus rhythm. Patient on amiodaron gtt. Will continue to monitor patient.
--- NOTE | 2018-11-21 18:31 | NUR ---
Problems reprioritized. Patient report given, questions answered & plan of care reviewed with Camelia JOSEPH.
[2018-11-21] MEDS ORDERED: enoxaparin 60mg/0.6ml syringe SUBCUT SCH (20:00)
[2018-11-21] MEDS: atorvastatin 20mg tablet PO SCH (20:15)
[2018-11-21] MEDS: HYDROcodone/acetaminophen 10/325mg tab PO PRN (20:15)
[2018-11-21] MEDS: furosemide 40mg/4ml inj IV SCH (20:15)
--- NOTE | 2018-11-21 20:45 | NUR ---
Patient requested to be placed on NC, placed on 3L with saturations at 98-100%. Patient complained of difficulty breathing 15 minutes later, patient's saturation maintained above 98% despite complaint of SOB. Patient placed back on BiPAP per patient's request.
[2018-11-21] MEDS: acetaminophen 325mg tablet PO PRN (23:51)
[2018-11-22] VITALS (32 sets, daily range): BP systolic 67–121; BP diastolic 39–78
--- NOTE | 2018-11-22 00:13 | NUR ---
Patient saturated bed, wick replaced and linens changed. Will continue to monitor.
[2018-11-22] MEDS: amiodarone/D5 360MG/200ML BAG 200 ML IV SCH ×4 (03:53→20:28)
[2018-11-22] MEDS ORDERED: albumin (Human) 5% 250ml 250 ML IV ONE ×3 (05:10→09:04)
--- NOTE | 2018-11-22 05:15 | NUR ---
Notified Hawk Perry RETURNER regarding patient's persistently low BP, currently at 88/49. Informed him that patient is in amiodarone drip, and that she received lasix at 1999 on 11/21 and has been voiding large amounts. New orders for albumin received, will administer per RETURNER orders.
[2018-11-22 05:23] LABS: BASOPHILS % (AUTO) 0.4 % (0-1); EOSINOPHILS % (AUTO) 1.1 % (0-6); LYMPHOCYTES # (AUTO) 0.7 X10'3 (1.1-4.8); LYMPHOCYTES % (AUTO) 33.8 % (21-51); MEAN CORPUSCULAR HEMOGLOBIN 36.1 PG (27.0-31.0); MEAN CORPUSCULAR HGB CONC 33.2 % (33.0-36.5); MEAN CORPUSCULAR VOLUME 108.5 FL (78-98); MEAN PLATELET VOLUME 7.6 FL (7.4-10.4); MONOCYTES % (AUTO) 2.5 % (2-12); NEUTROPHILS # (AUTO) 1.2 X10'3 (1.8-7.7); NEUTROPHILS % (AUTO) 62.2 % (42-75); PLATELET COUNT 73 X10'3 (140-440); RED BLOOD COUNT 1.86 X10'6 (4.20-5.60); RED CELL DISTRIBUTION WIDTH 25.4 % (11.5-14.5)
[2018-11-22] MEDS: albumin (Human) 5% 250ml 250 ML IV SCH ×2 (05:40→09:05)
[2018-11-22 05:51] LABS: HEMATOCRIT 20.2 % (35.0-45.0); HEMOGLOBIN 6.7 g/dl (12.0-16.0)
[2018-11-22 05:56] LABS: ANISOCYTOSIS 3+; PLATELET ESTIMATE DECREASED; TOTAL CELLS COUNTED 100
[2018-11-22 05:57] LABS: TOXIC GRANULATION 1+
--- NOTE | 2018-11-22 05:57 | NUR ---
Notified Hawk Perry regarding patient's critical H/H of 6.7 and 20.2. Vicky states he is not at the hospital, agrees to obtaining patient consent over telephone. Vicky spoke with patient over the phone, witnessed patient agree to blood transfusion over telephone with Darnell Tirado RN. New orders placed for type/screen and crossmatch as well as 1 unit PRBC to transfuse.
[2018-11-22 06:02] LABS: INR 1.3 INR; PROTHROMBIN TIME 12.7 SECONDS (9.0-12.0)
[2018-11-22 06:03] LABS: PARTIAL THROMBOPLASTIN TIME 62 SECONDS (22-32)
[2018-11-22 06:07] LABS: ALBUMIN 1.9 G/DL (3.4-5.0); ALBUMIN/GLOBULIN RATIO 0.5 (1.1-1.5); ALKALINE PHOSPHATASE 86 IU/L (46-116); ANION GAP 11 (8-16); ASPARTATE AMINO TRANSFERASE 53 U/L (10-37); BILIRUBIN,TOTAL 0.4 MG/DL (0.1-1.0); BLOOD UREA NITROGEN 12 MG/DL (7-18); BUN/CREATININE RATIO 12.1 (6.6-38.0); CALCIUM 7.8 MG/DL (8.5-10.1); CHLORIDE 100 MMOL/L (99-107); CREATININE 0.99 MG/DL (0.40-0.90); GLUCOSE 88 MG/DL (70-104); MAGNESIUM 1.2 MG/DL (1.5-2.4); PHOSPHORUS 3.1 MG/DL (2.3-4.5); POTASSIUM 3.2 MMOL/L (3.5-5.1); SODIUM 132 MMOL/L (135-145); TOTAL CARBON DIOXIDE 21.2 MMOL/L (24-32); TOTAL PROTEIN 5.6 G/DL (6.4-8.2); eGFR 54 ML/MIN
--- NOTE | 2018-11-22 06:15 | NUR ---
Patient in room CICU 2012. I have received report from mini shifter and had the opportunity to ask questions and assume patient care.
[2018-11-22 06:39] LABS: ALANINE AMINOTRANSFERASE < 6 U/L (12-78)
--- NOTE | 2018-11-22 06:42 | NUR ---
Problems reprioritized. Patient report given, questions answered & plan of care reviewed with Lien JOSEPH.
[2018-11-22] MEDS: docusate sod 100mg capsule PO SCH ×2 (07:52→20:44)
[2018-11-22] MEDS: pantoprazole 40mg Tablet.DR PO SCH (07:52)
[2018-11-22] MEDS: levoTHYROXINE 25mcg tablet PO SCH (07:52)
[2018-11-22] MEDS: midodrine 5mg tablet PO SCH ×3 (07:52→23:06)
[2018-11-22] MEDS: furosemide 40mg/4ml inj IV SCH ×2 (07:53→20:45)
[2018-11-22] MEDS: HYDROcodone/acetaminophen 10/325mg tab PO PRN (07:56)
[2018-11-22] MEDS: K, MAG and/or Phos replacement - Verify level? MC SCH (08:00)
[2018-11-22] MEDS: lactose-reduced food (Ensure Enlive) - 237ml bottle PO SCH ×3 (09:06→18:00)
--- NOTE | 2018-11-22 11:00 | NUR ---
Dr Ferro here to see, orders received
[2018-11-22] MEDS ORDERED: magnesium 4gm in 100ml NS 100 ML IV PRN (12:15)
[2018-11-22] MEDS ORDERED: levoTHYROXINE 25mcg tablet PO ONE (12:15)
[2018-11-22] MEDS ORDERED: magnesium 2GM in 50ml NS 50 ML IV PRN (12:15)
[2018-11-22 12:58] LABS: TROPONIN I 0.07 NG/ML (0.0-0.05)
[2018-11-22] MEDS: potassium Cl 40MEQ/NS 500ml 500 ML IV PRN (13:20)
[2018-11-22] MEDS: ondansetron/PF 4mg/2ml inj IV PRN (13:38)
[2018-11-22] MEDS: levoFLOXACIN 500mg tablet PO SCH (13:44)
[2018-11-22] MEDS: normal saline 1000ml 1,000 ML IV SCH (13:53)
--- NOTE | 2018-11-22 15:00 | NUR ---
Dr Ferro here to see patient and speak with family, orders received.
[2018-11-22] MEDS: hydrocortisone sod succ/PF 100mg/2ml inj. IV SCH ×2 (15:52→23:08)
[2018-11-22 16:31] LABS: HEMATOCRIT 26.1 % (35.0-45.0); HEMOGLOBIN 8.8 g/dl (12.0-16.0); MEAN CORPUSCULAR HEMOGLOBIN 33.2 PG (27.0-31.0); MEAN CORPUSCULAR HGB CONC 33.6 % (33.0-36.5); MEAN CORPUSCULAR VOLUME 98.8 FL (78-98); MEAN PLATELET VOLUME 7.4 FL (7.4-10.4); PLATELET COUNT 52 X10'3 (140-440); RED BLOOD COUNT 2.64 X10'6 (4.20-5.60); RED CELL DISTRIBUTION WIDTH 26.3 % (11.5-14.5); WHITE BLOOD COUNT 2.2 X10'3 (4.5-11.0)
[2018-11-22 17:20] LABS: OCCULT BLOOD STOOL NEGATIVE (Neg)
--- NOTE | 2018-11-22 18:15 | NUR ---
Problems reprioritized. Patient report given, questions answered & plan of care reviewed with oncoming shift.
--- NOTE | 2018-11-22 18:30 | NUR ---
Patient in room CICU 2013. I have received report from JAKE Brooks and had the opportunity to ask questions and assume patient care.
--- NOTE | 2018-11-22 19:30 | NUR ---
Dr. Ferro requested we access patients PortACath. Spoke with charge nurse who called Dina (charge nurse) from the surgical floor to assist. Dina accessed port without any complications.
[2018-11-22] MEDS: polyethylene glycol 3350 17gm powd pack PO SCH (20:44)
[2018-11-22] MEDS: lactobacillus rhamnosus 10,000 MMU CELLS/CAPSULE PO SCH (20:45)
[2018-11-22] MEDS: atorvastatin 20mg tablet PO SCH (20:45)
[2018-11-22] MEDS: diatr meglu/diatrizoate 30ml oral sol.-(3 dose) bottle PO SCH (20:45)
[2018-11-22] MEDS: acetaminophen 325mg tablet PO PRN (22:08)
[2018-11-23] VITALS (20 sets, daily range): BP systolic 86–127; BP diastolic 47–70
[2018-11-23] MEDS: amiodarone/D5 360MG/200ML BAG 200 ML IV SCH ×2 (03:19→07:46)
[2018-11-23 05:59] LABS: BASOPHILS % (AUTO) 0.3 % (0-1); EOSINOPHILS % (AUTO) 0 % (0-6); HEMATOCRIT 25.8 % (35.0-45.0); LYMPHOCYTES # (AUTO) 0.3 X10'3 (1.1-4.8); LYMPHOCYTES % (AUTO) 14.9 % (21-51); MEAN CORPUSCULAR HGB CONC 34.9 % (33.0-36.5); MEAN CORPUSCULAR VOLUME 97.4 FL (78-98); MEAN PLATELET VOLUME 7.9 FL (7.4-10.4); MONOCYTES # (AUTO) 0.1 X10'3 (0-0.9); NEUTROPHILS # (AUTO) 1.7 X10'3 (1.8-7.7); NEUTROPHILS % (AUTO) 80.8 % (42-75); RED BLOOD COUNT 2.65 X10'6 (4.20-5.60); RED CELL DISTRIBUTION WIDTH 27.1 % (11.5-14.5); WHITE BLOOD COUNT 2.2 X10'3 (4.5-11.0)
--- NOTE | 2018-11-23 06:13 | NUR ---
Problems reprioritized. Patient report given, questions answered & plan of care reviewed with JAKE Brooks.
[2018-11-23 06:14] LABS: INR 1.2 INR; PROTHROMBIN TIME 12.5 SECONDS (9.0-12.0)
[2018-11-23 06:15] LABS: PARTIAL THROMBOPLASTIN TIME 98 SECONDS (22-32)
--- NOTE | 2018-11-23 06:15 | NUR ---
Patient in room CICU 2012. I have received report from slot shift manager and had the opportunity to ask questions and assume patient care.
[2018-11-23 06:24] LABS: PLATELET COUNT 38 X10'3 (140-440)
[2018-11-23 06:37] LABS: ALANINE AMINOTRANSFERASE 16 U/L (12-78); ALBUMIN 2.1 G/DL (3.4-5.0); ALBUMIN/GLOBULIN RATIO 0.6 (1.1-1.5); ALKALINE PHOSPHATASE 82 IU/L (46-116); ANION GAP 14 (8-16); ASPARTATE AMINO TRANSFERASE 48 U/L (10-37); BILIRUBIN,TOTAL 0.9 MG/DL (0.1-1.0); BLOOD UREA NITROGEN 15 MG/DL (7-18); BUN/CREATININE RATIO 13.2 (6.6-38.0); CALCIUM 7.5 MG/DL (8.5-10.1); CHLORIDE 99 MMOL/L (99-107); CREATININE 1.14 MG/DL (0.40-0.90); GLUCOSE 182 MG/DL (70-104); MAGNESIUM 2.4 MG/DL (1.5-2.4); POTASSIUM 3.3 MMOL/L (3.5-5.1); SODIUM 134 MMOL/L (135-145); TOTAL CARBON DIOXIDE 21.4 MMOL/L (24-32); TOTAL PROTEIN 5.8 G/DL (6.4-8.2); eGFR 46 ML/MIN
[2018-11-23 06:48] LABS: ANISOCYTOSIS 3+; PLATELET ESTIMATE DECREASED; TOTAL CELLS COUNTED 100
[2018-11-23 06:49] LABS: TOXIC GRANULATION 1+
[2018-11-23] MEDS: diatr meglu/diatrizoate 30ml oral sol.-(3 dose) bottle PO SCH ×2 (07:12→09:29)
[2018-11-23] MEDS: hydrocortisone sod succ/PF 100mg/2ml inj. IV SCH ×3 (07:19→23:41)
[2018-11-23] MEDS: furosemide 40mg/4ml inj IV SCH (07:19)
[2018-11-23] MEDS: lactobacillus rhamnosus 10,000 MMU CELLS/CAPSULE PO SCH ×2 (07:19→20:38)
[2018-11-23] MEDS: midodrine 5mg tablet PO SCH ×3 (07:19→23:42)
[2018-11-23] MEDS: levoTHYROXINE 25mcg tablet PO SCH (07:19)
[2018-11-23] MEDS: pantoprazole 40mg Tablet.DR PO SCH (07:19)
[2018-11-23] MEDS: docusate sod 100mg capsule PO SCH ×2 (07:19→20:00)
[2018-11-23] MEDS: K, MAG and/or Phos replacement - Verify level? MC SCH (07:47)
[2018-11-23] MEDS: potassium Cl 40MEQ/NS 500ml 500 ML IV PRN (08:05)
[2018-11-23] MEDS: lactose-reduced food (Ensure Enlive) - 237ml bottle PO SCH ×3 (08:37→18:00)
[2018-11-23] MEDS ORDERED: amiodarone 200mg tablet PO ONE (11:41)
[2018-11-23] MEDS: levoFLOXACIN 250mg tablet PO SCH (12:45)
[2018-11-23] MEDS: ondansetron/PF 4mg/2ml inj IV PRN (12:46)
[2018-11-23] MEDS ORDERED: heparin sodium, porcine/PF 100unit/ml 5ML syringe IV ONE (14:35)
--- NOTE | 2018-11-23 16:35 | NUR ---
patient transferred to PCU room 3026A with all belongings. Problems reprioritized. Patient report given, questions answered & plan of care reviewed with FACULTY INSTRUCTOR .
--- NOTE | 2018-11-23 16:35 | NUR ---
Patient in room PCU 3026. I have received report from Regina JOSEPH and had the opportunity to ask questions and assume patient care.
[2018-11-23] MEDS ORDERED: DOPamine 400mg/D5W 250ml 250 ML IV PRN (16:57)
--- NOTE | 2018-11-23 18:35 | NUR ---
Patient in room PCU 3026. I have received report from Roger JOSEPH and had the opportunity to ask questions and assume patient care.
[2018-11-23] MEDS: polyethylene glycol 3350 17gm powd pack PO SCH (20:17)
[2018-11-23] MEDS: normal saline 1000ml 1,000 ML IV SCH (20:37)
[2018-11-23] MEDS: famotidine 20mg tablet PO SCH (20:38)
[2018-11-23] MEDS: atorvastatin 20mg tablet PO SCH (20:39)
[2018-11-23] MEDS: acetaminophen 325mg tablet PO PRN (22:49)
[2018-11-24 02:00] VITALS: BP 143/67
[2018-11-24] MEDS: albuterol 2.5 MG/3 ML nebule NEB PRN (04:20)
[2018-11-24] MEDS ORDERED: furosemide 40mg/4ml inj IV ONE (05:20)
[2018-11-24] MEDS ORDERED: furosemide 40mg/4ml inj ONE (05:26)
[2018-11-24 05:36] LABS: ABG BASE EXCESS -7.9 mmol/L (-2.0-3.0); ABG OXYGEN SATURATION 99.7 % (95-98); ABG PCO2 (T) 59.5 mmHg (32.0-45.0); ABG PH (T) 7.167 (7.350-7.450); ABG PO2 (T) 428.6 mmHg (83-108); FCOHb 0.3 % (0.5-1.5); FMetHb 0.2 % (0.3-1.12); FO2Hb 99.2 % (94-100); MINUTE VOLUME 15 L/min; PATIENT TEMPERATURE 37.1; RESPIRATORY RATE 14 b/min; RESPIRATORY RATE (OBSERVED) 19 b/min; TOTAL HEMOGLOBIN 11.4 G/dl (12.0-16.0)
[2018-11-24 05:39] LABS: BASOPHILS % (AUTO) 0.1 % (0-1); EOSINOPHILS % (AUTO) 0.1 % (0-6); HEMATOCRIT 32.1 % (35.0-45.0); HEMOGLOBIN 10.8 g/dl (12.0-16.0); LYMPHOCYTES % (AUTO) 26.1 % (21-51); MEAN CORPUSCULAR HEMOGLOBIN 33.4 PG (27.0-31.0); MEAN CORPUSCULAR HGB CONC 33.6 % (33.0-36.5); MEAN CORPUSCULAR VOLUME 99.5 FL (78-98); MEAN PLATELET VOLUME 7.8 FL (7.4-10.4); MONOCYTES # (AUTO) 0.3 X10'3 (0-0.9); MONOCYTES % (AUTO) 7.1 % (2-12); NEUTROPHILS # (AUTO) 2.7 X10'3 (1.8-7.7); NEUTROPHILS % (AUTO) 66.6 % (42-75); RED BLOOD COUNT 3.23 X10'6 (4.20-5.60)
--- NOTE | 2018-11-24 05:39 | NUR ---
pt was desating in the 40s, put on nonrebreather. pt recovered in the low 80s. pt not responding to treatment. rapid was called.
[2018-11-24 05:55] LABS: PLATELET COUNT 47 X10'3 (140-440)
[2018-11-24 06:00] VITALS: BP 112/55
[2018-11-24 06:05] LABS: INR 1.2 INR; PARTIAL THROMBOPLASTIN TIME 36 SECONDS (22-32); PROTHROMBIN TIME 12.4 SECONDS (9.0-12.0)
[2018-11-24 06:07] LABS: ALANINE AMINOTRANSFERASE 20 U/L (12-78); ALBUMIN 2.6 G/DL (3.4-5.0); ALBUMIN/GLOBULIN RATIO 0.6 (1.1-1.5); ALKALINE PHOSPHATASE 105 IU/L (46-116); ANION GAP 15 (8-16); ASPARTATE AMINO TRANSFERASE 55 U/L (10-37); BILIRUBIN,TOTAL 0.5 MG/DL (0.1-1.0); BLOOD UREA NITROGEN 15 MG/DL (7-18); BUN/CREATININE RATIO 10.3 (6.6-38.0); CHLORIDE 101 MMOL/L (99-107); CREATININE 1.46 MG/DL (0.40-0.90); GLUCOSE 198 MG/DL (70-104); MAGNESIUM 2.1 MG/DL (1.5-2.4); PHOSPHORUS 4.3 MG/DL (2.3-4.5); POTASSIUM 3.2 MMOL/L (3.5-5.1); SODIUM 138 MMOL/L (135-145); TOTAL CARBON DIOXIDE 22.4 MMOL/L (24-32); TROPONIN I < 0.04 NG/ML (0.0-0.05); eGFR 35 ML/MIN
--- NOTE | 2018-11-24 06:09 | NUR ---
Problems reprioritized. Patient report given, questions answered & plan of care reviewed with Elodia JOSEPH.
[2018-11-24 06:22] LABS: ANISOCYTOSIS 3+; BURR CELLS 1+; LARGE PLATELETS FEW; PLATELET ESTIMATE DECREASED
--- NOTE | 2018-11-24 06:30 | NUR ---
Patient in room PCU 3026. I have received report from JAKE Souza and had the opportunity to ask questions and assume patient care.
[2018-11-24 07:50] LABS: ABG BASE EXCESS -3.2 mmol/L (-2.0-3.0); ABG HCO3 21.1 mmol/L (22.0-26.0); ABG OXYGEN SATURATION 98.2 % (95-98); ABG PCO2 (T) 34.6 mmHg (32.0-45.0); ABG PH (T) 7.401 (7.350-7.450); ABG PO2 (T) 119.9 mmHg (83-108); ALLEN'S TEST Positive; FCOHb 0.3 % (0.5-1.5); FMetHb 0.3 % (0.3-1.12); FO2Hb 97.6 % (94-100); MINUTE VOLUME 10 L/min; PATIENT TEMPERATURE 36.7; RESPIRATORY RATE 14 b/min; RESPIRATORY RATE (OBSERVED) 26 b/min; TOTAL HEMOGLOBIN 10.4 G/dl (12.0-16.0)
[2018-11-24] MEDS: midodrine 5mg tablet PO SCH (07:59)
[2018-11-24] MEDS: amiodarone 200mg tablet PO SCH (07:59)
[2018-11-24] MEDS: potassium Cl 20 mEq SR tablet PO PRN ×3 (07:59→20:49)
[2018-11-24] MEDS: famotidine 20mg tablet PO SCH ×2 (07:59→20:50)
[2018-11-24] MEDS: lactobacillus rhamnosus 10,000 MMU CELLS/CAPSULE PO SCH ×2 (07:59→20:49)
[2018-11-24] MEDS: docusate sod 100mg capsule PO SCH ×2 (07:59→20:00)
[2018-11-24] MEDS: levoTHYROXINE 25mcg tablet PO SCH (07:59)
[2018-11-24] MEDS: K, MAG and/or Phos replacement - Verify level? MC SCH (08:00)
[2018-11-24] MEDS: hydrocortisone sod succ/PF 100mg/2ml inj. IV SCH (08:00)
[2018-11-24] MEDS: lactose-reduced food (Ensure Enlive) - 237ml bottle PO SCH ×3 (08:00→18:00)
[2018-11-24 11:00] VITALS: BP 116/64
[2018-11-24] MEDS: levoFLOXACIN 250mg tablet PO SCH (11:46)
[2018-11-24] MEDS: epoetin 20,000 units/ml inj SQ SCH (11:46)
[2018-11-24 15:00] VITALS: BP 120/59
[2018-11-24] MEDS: furosemide 20 MG/2 ML vial IV SCH ×2 (15:03→20:54)
--- NOTE | 2018-11-24 17:31 | NUR ---
Initial: Pt s/p rapid placed on bipap after leaving critical care per MD note. Pt refuses meals r/t SOB and respiratory failure day 5 now. Rectal tube in place and stooling. 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 WBC 4.0. MARVA d/w RN regarding adding MVM per MD approval since tolerating meds. IF remains full code and refusing meals >7days may need EN nutrition to meet needs. Will continue to monitor for minimum 2 malnutrition criteria w/ PO hx only meeting one at this time. Rec: 1. continue regular diet 2. ensure enlive w/ meals; honor pt food preferences 3. wt per rx 4. monitor for changes in code status 5. IF corpak feeds; AF @ 65ml/hr Addendum: 11/24/18 at [address] Amended: Links added.
[2018-11-24 18:00] VITALS: BP 113/65
--- NOTE | 2018-11-24 18:18 | NUR ---
Problems reprioritized. Patient report given, questions answered & plan of care reviewed with JAKE FORD.
--- NOTE | 2018-11-24 18:42 | NUR ---
Patient in room PCU 3026. I have received report from Elodia JOSEPH and had the opportunity to ask questions and assume patient care.
[2018-11-24] MEDS: atorvastatin 20mg tablet PO SCH (20:50)
[2018-11-24] MEDS: acetaminophen 325mg tablet PO PRN (20:54)
[2018-11-24] MEDS: polyethylene glycol 3350 17gm powd pack PO SCH (20:55)
[2018-11-24 22:00] VITALS: BP 107/63
[2018-11-24] MEDS ORDERED: LORazepam 2 mg/ml vial IV ONE (23:00)
[2018-11-24] MEDS ORDERED: LORazepam 2 mg/ml vial IV PRN (23:00)
--- NOTE | 2018-11-25 00:44 | NUR ---
called Dr Monroe about pt becoming more altered and not keeping bipap on. orders received. will continue to monitor.
[2018-11-25] MEDS ORDERED: albuterol 2.5 MG/3 ML nebule NEB PRN (01:10)
[2018-11-25 01:16] LABS: ABG HCO3 24.9 mmol/L (22.0-26.0); ABG PCO2 (T) 36.8 mmHg (32.0-45.0); ABG PH (T) 7.448 (7.350-7.450); ABG PO2 (T) 75.2 mmHg (83-108); FCOHb 0.3 % (0.5-1.5); FLOW 2 L/min; FO2Hb 94.7 % (94-100); TOTAL HEMOGLOBIN 9.7 G/dl (12.0-16.0)
[2018-11-25 02:00] VITALS: BP 90/78
[2018-11-25] MEDS: ipratropium/albuterol 3ml nebule NEB SCH ×6 (02:01→23:13)
[2018-11-25] MEDS ORDERED: ipratropium 0.5 MG/2.5ML nebule IH SCH (04:00)
[2018-11-25 06:00] VITALS: BP 135/70
--- NOTE | 2018-11-25 06:17 | NUR ---
Problems reprioritized. Patient report given, questions answered & plan of care reviewed with Maria Fernanda JOSEPH.
--- NOTE | 2018-11-25 06:46 | NUR ---
Patient in room PCU 3026. I have received report from JAKE SCHULTZ SBAR AND BEDSIDE and had the opportunity to ask questions and assume patient care.
[2018-11-25 07:35] LABS: ALANINE AMINOTRANSFERASE 21 U/L (12-78); ALBUMIN 2.6 G/DL (3.4-5.0); ALBUMIN/GLOBULIN RATIO 0.7 (1.1-1.5); ALKALINE PHOSPHATASE 85 IU/L (46-116); ANION GAP 11 (8-16); ASPARTATE AMINO TRANSFERASE 57 U/L (10-37); BILIRUBIN,TOTAL 0.6 MG/DL (0.1-1.0); BLOOD UREA NITROGEN 18 MG/DL (7-18); BUN/CREATININE RATIO 11.8 (6.6-38.0); CALCIUM 8.2 MG/DL (8.5-10.1); CHLORIDE 103 MMOL/L (99-107); CREATININE 1.53 MG/DL (0.40-0.90); GLUCOSE 119 MG/DL (70-104); MAGNESIUM 1.7 MG/DL (1.5-2.4); PHOSPHORUS 2.6 MG/DL (2.3-4.5); POTASSIUM 3.2 MMOL/L (3.5-5.1); SODIUM 141 MMOL/L (135-145); TOTAL CARBON DIOXIDE 27.2 MMOL/L (24-32); TOTAL PROTEIN 6.5 G/DL (6.4-8.2); eGFR 33 ML/MIN
[2018-11-25 07:46] LABS: INR 1.2 INR; PARTIAL THROMBOPLASTIN TIME 38 SECONDS (22-32); PROTHROMBIN TIME 12.3 SECONDS (9.0-12.0)
--- NOTE | 2018-11-25 07:47 | NUR ---
lab called with critical labs plt 17, wbc 1.9 they will redraw
[2018-11-25] MEDS: docusate sod 100mg capsule PO SCH ×2 (08:00→20:00)
[2018-11-25] MEDS: potassium Cl 20 mEq SR tablet PO PRN ×3 (08:00→15:49)
[2018-11-25] MEDS: lactobacillus rhamnosus 10,000 MMU CELLS/CAPSULE PO SCH ×2 (08:00→21:13)
[2018-11-25] MEDS: levoTHYROXINE 25mcg tablet PO SCH (08:00)
[2018-11-25] MEDS: famotidine 20mg tablet PO SCH ×2 (08:00→21:13)
[2018-11-25] MEDS: lactose-reduced food (Ensure Enlive) - 237ml bottle PO SCH ×4 (08:00→21:12)
[2018-11-25] MEDS: amiodarone 200mg tablet PO SCH (08:00)
[2018-11-25] MEDS: furosemide 20 MG/2 ML vial IV SCH ×2 (08:04→21:13)
[2018-11-25] MEDS: K, MAG and/or Phos replacement - Verify level? MC SCH (08:05)
[2018-11-25 10:06] LABS: BASOPHILS % (AUTO) 0.1 % (0-1); EOSINOPHILS % (AUTO) 0.1 % (0-6); HEMATOCRIT 29.5 % (35.0-45.0); HEMOGLOBIN 9.7 g/dl (12.0-16.0); LYMPHOCYTES # (AUTO) 0.6 X10'3 (1.1-4.8); LYMPHOCYTES % (AUTO) 26.9 % (21-51); MEAN CORPUSCULAR HEMOGLOBIN 32.8 PG (27.0-31.0); MEAN CORPUSCULAR HGB CONC 32.8 % (33.0-36.5); MEAN CORPUSCULAR VOLUME 100.1 FL (78-98); MEAN PLATELET VOLUME 9.4 FL (7.4-10.4); MONOCYTES # (AUTO) 0.2 X10'3 (0-0.9); NEUTROPHILS # (AUTO) 1.3 X10'3 (1.8-7.7); NEUTROPHILS % (AUTO) 61.9 % (42-75); RED BLOOD COUNT 2.95 X10'6 (4.20-5.60); RED CELL DISTRIBUTION WIDTH 24.7 % (11.5-14.5); WHITE BLOOD COUNT 2.1 X10'3 (4.5-11.0)
[2018-11-25 10:48] LABS: PLATELET COUNT 21 X10'3 (140-440)
--- NOTE | 2018-11-25 10:52 | NUR ---
PAGED DR. LANDRUM WITH CRITICAL LAB RESULTS PLT 21 WBC 2.1
[2018-11-25 11:00] VITALS: BP 108/54
[2018-11-25 11:20] LABS: TOTAL CELLS COUNTED 100
[2018-11-25 11:21] LABS: ANISOCYTOSIS 3+; HYPOCHROMASIA 1+; LARGE PLATELETS FEW; PLATELET ESTIMATE DECREASED; POIKILOCYTOSIS FEW
--- NOTE | 2018-11-25 14:27 | NUR ---
SPOKE WITH DAUGHTER RE WHO ONCOLOGIST IS PER DAUGHTER DR. MILLER PT IS CURRENTLY RECEIVING CHEMO Q 3WEEKS FOR OVARIAN CA WITH METS. DAUGHTER THINKS SHE HAS BEEN RECEIVING IT ABOUT [address] LANDRUM WITH THIS INFORMATION.
[2018-11-25 15:00] VITALS: BP 106/60
[2018-11-25 18:00] VITALS: BP 130/66
--- NOTE | 2018-11-25 18:30 | NUR ---
Patient in room PCU 3026. I have received report from Maria Fernanda JOSEPH and had the opportunity to ask questions and assume patient care.
--- NOTE | 2018-11-25 18:30 | NUR ---
Problems reprioritized. Patient report given, questions answered & plan of care reviewed with JAKE SCHULTZ SBAR AND BEDSIDE.
[2018-11-25] MEDS: polyethylene glycol 3350 17gm powd pack PO SCH (20:37)
--- NOTE | 2018-11-25 20:40 | NUR ---
Patient report given, questions answered & plan of care reviewed with Tio JOSEPH .
[2018-11-25] MEDS: atorvastatin 20mg tablet PO SCH (21:13)
[2018-11-25 23:00] VITALS: BP 99/54
[2018-11-26] VITALS (13 sets, daily range): BP systolic 87–129; BP diastolic 47–85
[2018-11-26] MEDS: ipratropium/albuterol 3ml nebule NEB SCH ×6 (03:19→22:55)
--- NOTE | 2018-11-26 06:38 | NUR ---
Problems reprioritized. Patient report given, questions answered & plan of care reviewed with Yoon RN.
[2018-11-26] MEDS: furosemide 20 MG/2 ML vial IV SCH ×2 (08:00→20:00)
[2018-11-26] MEDS: K, MAG and/or Phos replacement - Verify level? MC SCH (08:00)
[2018-11-26] MEDS: docusate sod 100mg capsule PO SCH ×2 (08:00→19:59)
[2018-11-26 08:36] LABS: INR 1.3 INR; PARTIAL THROMBOPLASTIN TIME 35 SECONDS (22-32); PROTHROMBIN TIME 12.9 SECONDS (9.0-12.0)
[2018-11-26 08:38] LABS: HEMATOCRIT 25.1 % (35.0-45.0); HEMOGLOBIN 8.6 g/dl (12.0-16.0); MEAN CORPUSCULAR HEMOGLOBIN 34.6 PG (27.0-31.0); MEAN CORPUSCULAR HGB CONC 34.3 % (33.0-36.5); MEAN CORPUSCULAR VOLUME 100.9 FL (78-98); MEAN PLATELET VOLUME 9.1 FL (7.4-10.4); RED BLOOD COUNT 2.49 X10'6 (4.20-5.60); RED CELL DISTRIBUTION WIDTH 25.4 % (11.5-14.5); WHITE BLOOD COUNT 1.8 X10'3 (4.5-11.0)
[2018-11-26 08:48] LABS: ALANINE AMINOTRANSFERASE 21 U/L (12-78); ALBUMIN 2.3 G/DL (3.4-5.0); ALBUMIN/GLOBULIN RATIO 0.7 (1.1-1.5); ALKALINE PHOSPHATASE 84 IU/L (46-116); ANION GAP 10 (8-16); ASPARTATE AMINO TRANSFERASE 54 U/L (10-37); BILIRUBIN,TOTAL 0.8 MG/DL (0.1-1.0); BLOOD UREA NITROGEN 19 MG/DL (7-18); BUN/CREATININE RATIO 13.7 (6.6-38.0); CALCIUM 7.8 MG/DL (8.5-10.1); CHLORIDE 103 MMOL/L (99-107); CREATININE 1.39 MG/DL (0.40-0.90); GLUCOSE 106 MG/DL (70-104); MAGNESIUM 1.5 MG/DL (1.5-2.4); PHOSPHORUS 1.8 MG/DL (2.3-4.5); SODIUM 141 MMOL/L (135-145); TOTAL CARBON DIOXIDE 28.1 MMOL/L (24-32); TOTAL PROTEIN 5.8 G/DL (6.4-8.2); eGFR 37 ML/MIN
[2018-11-26 08:50] LABS: POTASSIUM 2.8 MMOL/L (3.5-5.1)
[2018-11-26 08:55] LABS: PLATELET COUNT 12 X10'3 (140-440)
[2018-11-26] MEDS: famotidine 20mg tablet PO SCH ×2 (08:58→20:12)
[2018-11-26] MEDS: potassium Cl 20 mEq SR tablet PO PRN ×3 (08:58→20:25)
[2018-11-26] MEDS: lactobacillus rhamnosus 10,000 MMU CELLS/CAPSULE PO SCH ×2 (08:58→20:12)
[2018-11-26] MEDS: amiodarone 200mg tablet PO SCH (08:58)
[2018-11-26] MEDS: levoTHYROXINE 25mcg tablet PO SCH (09:00)
--- NOTE | 2018-11-26 09:17 | NUR ---
Critical PLT=12, K=2.[address] Singh- "Re: Angelina Mendez in 308. CRITICAL lab results PLT=12, K=2.8. Thank you, Gracia BASS [phone]"
[2018-11-26 09:23] LABS: ANISOCYTOSIS 3+; PLATELET ESTIMATE DECREASED; POIKILOCYTOSIS FEW; POLYCHROMASIA FEW; TOTAL CELLS COUNTED 100
[2018-11-26] MEDS ORDERED: furosemide 20 MG/2 ML vial IV ONE (11:55)
[2018-11-26] MEDS: lactose-reduced food (Ensure Enlive) - 237ml bottle PO SCH ×2 (13:00→20:11)
--- NOTE | 2018-11-26 18:00 | NUR ---
Patient in room MED 308. I have received report from Yoon RN and had the opportunity to ask questions and assume patient care. at bedside, pt resting comfortably, in no apparent distress or pain at this time. will continue to monitor.
[2018-11-26] MEDS: polyethylene glycol 3350 17gm powd pack PO SCH (20:00)
[2018-11-26 20:09] LABS: BASOPHILS % (AUTO) 0.2 % (0-1); EOSINOPHILS % (AUTO) 0.4 % (0-6); HEMATOCRIT 24.6 % (35.0-45.0); HEMOGLOBIN 8.2 g/dl (12.0-16.0); LYMPHOCYTES # (AUTO) 0.3 X10'3 (1.1-4.8); LYMPHOCYTES % (AUTO) 19.1 % (21-51); MEAN CORPUSCULAR HEMOGLOBIN 33.7 PG (27.0-31.0); MEAN CORPUSCULAR HGB CONC 33.5 % (33.0-36.5); MEAN CORPUSCULAR VOLUME 100.6 FL (78-98); MONOCYTES # (AUTO) 0.1 X10'3 (0-0.9); MONOCYTES % (AUTO) 4.5 % (2-12); NEUTROPHILS # (AUTO) 1.3 X10'3 (1.8-7.7); NEUTROPHILS % (AUTO) 75.8 % (42-75); RED BLOOD COUNT 2.44 X10'6 (4.20-5.60); RED CELL DISTRIBUTION WIDTH 24.4 % (11.5-14.5); WHITE BLOOD COUNT 1.7 X10'3 (4.5-11.0)
[2018-11-26] MEDS: atorvastatin 20mg tablet PO SCH (20:12)
[2018-11-26 20:15] LABS: PLATELET COUNT 9 X10'3 (140-440)
[2018-11-27] MEDS: potassium Cl 20 mEq SR tablet PO PRN (00:33)
[2018-11-27 03:00] VITALS: BP 100/60
[2018-11-27] MEDS: ipratropium/albuterol 3ml nebule NEB SCH ×6 (03:52→23:34)
--- NOTE | 2018-11-27 06:00 | NUR ---
Patient in room MED 316. I have received report from Sonja JOSEPH and had the opportunity to ask questions and assume patient care.
[2018-11-27 06:55] LABS: ALANINE AMINOTRANSFERASE 25 U/L (12-78); ALBUMIN 2.6 G/DL (3.4-5.0); ALBUMIN/GLOBULIN RATIO 0.7 (1.1-1.5); ALKALINE PHOSPHATASE 83 IU/L (46-116); ANION GAP 6 (8-16); ASPARTATE AMINO TRANSFERASE 56 U/L (10-37); BILIRUBIN,TOTAL 1.1 MG/DL (0.1-1.0); BLOOD UREA NITROGEN 18 MG/DL (7-18); BUN/CREATININE RATIO 12.9 (6.6-38.0); CALCIUM 8.4 MG/DL (8.5-10.1); CHLORIDE 102 MMOL/L (99-107); GLUCOSE 89 MG/DL (70-104); MAGNESIUM 1.6 MG/DL (1.5-2.4); PHOSPHORUS 1.8 MG/DL (2.3-4.5); POTASSIUM 3.9 MMOL/L (3.5-5.1); SODIUM 138 MMOL/L (135-145); TOTAL CARBON DIOXIDE 30.2 MMOL/L (24-32); TOTAL PROTEIN 6.2 G/DL (6.4-8.2); eGFR 36 ML/MIN
[2018-11-27 06:56] LABS: BASOPHILS % (AUTO) 0.1 % (0-1); EOSINOPHILS % (AUTO) 0.8 % (0-6); HEMATOCRIT 24.6 % (35.0-45.0); LYMPHOCYTES # (AUTO) 0.3 X10'3 (1.1-4.8); LYMPHOCYTES % (AUTO) 18.5 % (21-51); MEAN CORPUSCULAR HEMOGLOBIN 32.7 PG (27.0-31.0); MEAN CORPUSCULAR HGB CONC 32.5 % (33.0-36.5); MEAN CORPUSCULAR VOLUME 100.4 FL (78-98); MEAN PLATELET VOLUME 8.1 FL (7.4-10.4); MONOCYTES # (AUTO) 0.1 X10'3 (0-0.9); MONOCYTES % (AUTO) 4.2 % (2-12); NEUTROPHILS # (AUTO) 1.5 X10'3 (1.8-7.7); NEUTROPHILS % (AUTO) 76.4 % (42-75); RED BLOOD COUNT 2.45 X10'6 (4.20-5.60); RED CELL DISTRIBUTION WIDTH 24.4 % (11.5-14.5); WHITE BLOOD COUNT 1.9 X10'3 (4.5-11.0)
[2018-11-27 07:00] VITALS: BP 114/72
[2018-11-27 07:02] LABS: PROTHROMBIN TIME 12.9 SECONDS (9.0-12.0)
[2018-11-27 07:03] LABS: INR 1.3 INR; PARTIAL THROMBOPLASTIN TIME 34 SECONDS (22-32)
[2018-11-27 07:14] LABS: PLATELET COUNT 33 X10'3 (140-440)
[2018-11-27] MEDS: K, MAG and/or Phos replacement - Verify level? MC SCH (08:00)
[2018-11-27] MEDS: lactose-reduced food (Ensure Enlive) - 237ml bottle PO SCH ×3 (08:00→18:00)
[2018-11-27] MEDS: docusate sod 100mg capsule PO SCH ×2 (08:00→20:50)
[2018-11-27] MEDS: lactobacillus rhamnosus 10,000 MMU CELLS/CAPSULE PO SCH ×2 (08:01→20:50)
[2018-11-27] MEDS: amiodarone 200mg tablet PO SCH (08:01)
[2018-11-27] MEDS: levoTHYROXINE 25mcg tablet PO SCH (08:01)
[2018-11-27] MEDS: furosemide 20 MG/2 ML vial IV SCH ×2 (08:01→20:50)
[2018-11-27] MEDS: famotidine 20mg tablet PO SCH ×2 (08:01→20:50)
[2018-11-27 08:28] LABS: PLATELET ESTIMATE DECREASED; TOTAL CELLS COUNTED 100
[2018-11-27 08:29] LABS: ANISOCYTOSIS 3+
[2018-11-27 11:00] VITALS: BP 124/74
[2018-11-27] MEDS: HYDROcodone/acetaminophen 10/325mg tab PO PRN (11:19)
[2018-11-27 15:00] VITALS: BP 120/68
--- NOTE | 2018-11-27 15:20 | NUR ---
reassessment: Pt PO 0-25% meals w/ 100% ONS slight improvement but still 9 days almost no nutrition. Rectal tube in place w/ hx colectomy 300ml output unsure of extent of colectomy partial vs total? MARVA d/w RN regarding potential corpak placement for supplemental nutrition as well as Phos replacement since 1.8 today per MD approval. RN states currently determining if to proceed w/ comfort measures currently d/w family but agrees to d/w MD if remains full code. Pt will need supplemental NG feeds if remains on non-comfort measure in order to meet energy needs. Pt qualifies for severe malnutrition at this time r/t decreased intake and -3kg wt 4% UBW loss past 4 days; MD notified. Rec: 1. continue regular diet 2. ensure enlive w/ meals; honor pt food preferences 3. wt per rx 4. monitor for changes in code status 5. IF corpak feeds; AF @ 65ml/hr Addendum: 11/27/18 at [address] Amended: Links added.
--- NOTE | 2018-11-27 18:31 | NUR ---
Problems reprioritized. Patient report given, questions answered & plan of care reviewed with Shawn JOSEPH.
[2018-11-27 19:00] VITALS: BP 109/63
[2018-11-27] MEDS: polyethylene glycol 3350 17gm powd pack PO SCH (20:49)
[2018-11-27] MEDS: atorvastatin 20mg tablet PO SCH (20:50)
[2018-11-27 23:00] VITALS: BP 112/67
[2018-11-28 03:00] VITALS: BP 124/58
[2018-11-28] MEDS: ipratropium/albuterol 3ml nebule NEB SCH ×6 (03:00→23:00)
--- NOTE | 2018-11-28 03:29 | NUR ---
pt refused 0300 svn treatment
[2018-11-28 06:00] VITALS: BP 127/76
--- NOTE | 2018-11-28 06:00 | NUR ---
Patient in room MED 308. I have received report from JAKE Escobar and had the opportunity to ask questions and assume patient care.
--- NOTE | 2018-11-28 06:30 | NUR ---
pT REPORT GIVEN TO Gracia JOSEPH
[2018-11-28 06:31] LABS: ALANINE AMINOTRANSFERASE 24 U/L (12-78); ALBUMIN 2.5 G/DL (3.4-5.0); ALBUMIN/GLOBULIN RATIO 0.7 (1.1-1.5); ALKALINE PHOSPHATASE 88 IU/L (46-116); ANION GAP 8 (8-16); ASPARTATE AMINO TRANSFERASE 46 U/L (10-37); BILIRUBIN,TOTAL 1.2 MG/DL (0.1-1.0); BLOOD UREA NITROGEN 17 MG/DL (7-18); BUN/CREATININE RATIO 13.6 (6.6-38.0); CALCIUM 8.2 MG/DL (8.5-10.1); CHLORIDE 99 MMOL/L (99-107); CREATININE 1.25 MG/DL (0.40-0.90); GLUCOSE 105 MG/DL (70-104); MAGNESIUM 1.4 MG/DL (1.5-2.4); PHOSPHORUS 2.5 MG/DL (2.3-4.5); POTASSIUM 3.5 MMOL/L (3.5-5.1); SODIUM 137 MMOL/L (135-145); TOTAL CARBON DIOXIDE 30.4 MMOL/L (24-32); TOTAL PROTEIN 6.3 G/DL (6.4-8.2); eGFR 41 ML/MIN
[2018-11-28 06:32] LABS: INR 1.3 INR; PARTIAL THROMBOPLASTIN TIME 33 SECONDS (22-32); PROTHROMBIN TIME 13.4 SECONDS (9.0-12.0)
[2018-11-28 06:49] LABS: BASOPHILS % (AUTO) 0.1 % (0-1); EOSINOPHILS % (AUTO) 1.2 % (0-6); HEMATOCRIT 27.6 % (35.0-45.0); HEMOGLOBIN 9.2 g/dl (12.0-16.0); LYMPHOCYTES # (AUTO) 0.7 X10'3 (1.1-4.8); LYMPHOCYTES % (AUTO) 19.3 % (21-51); MEAN CORPUSCULAR HEMOGLOBIN 33.5 PG (27.0-31.0); MEAN CORPUSCULAR HGB CONC 33.3 % (33.0-36.5); MEAN CORPUSCULAR VOLUME 100.8 FL (78-98); MEAN PLATELET VOLUME 8.6 FL (7.4-10.4); MONOCYTES # (AUTO) 0.3 X10'3 (0-0.9); MONOCYTES % (AUTO) 7.8 % (2-12); NEUTROPHILS # (AUTO) 2.8 X10'3 (1.8-7.7); NEUTROPHILS % (AUTO) 71.6 % (42-75); RED BLOOD COUNT 2.73 X10'6 (4.20-5.60); RED CELL DISTRIBUTION WIDTH 23.9 % (11.5-14.5); WHITE BLOOD COUNT 3.8 X10'3 (4.5-11.0)
[2018-11-28 07:01] LABS: PLATELET COUNT 19 X10'3 (140-440)
[2018-11-28] MEDS: amiodarone 200mg tablet PO SCH (08:00)
[2018-11-28] MEDS: lactose-reduced food (Ensure Enlive) - 237ml bottle PO SCH ×3 (08:00→18:00)
--- NOTE | 2018-11-28 08:59 | NUR ---
Platelets [address] Singh- "Re; Angelina Mendez in 308. FYI platelets are 19 today. thank you, Gracia BASS [phone]"
[2018-11-28] MEDS: epoetin 20,000 units/ml inj SQ SCH (09:00)
[2018-11-28] MEDS: lactobacillus rhamnosus 10,000 MMU CELLS/CAPSULE PO SCH ×2 (09:21→20:51)
[2018-11-28] MEDS: docusate sod 100mg capsule PO SCH (09:22)
[2018-11-28] MEDS: levoTHYROXINE 25mcg tablet PO SCH (09:23)
[2018-11-28] MEDS: famotidine 20mg tablet PO SCH ×2 (09:23→20:51)
[2018-11-28] MEDS: magnesium Cl slow-release 64mg tablet PO PRN ×2 (09:24→20:51)
[2018-11-28] MEDS: furosemide 20 MG/2 ML vial IV SCH ×2 (09:25→20:51)
[2018-11-28] MEDS: K, MAG and/or Phos replacement - Verify level? MC SCH (09:30)
[2018-11-28 11:00] VITALS: BP 122/82
[2018-11-28] MEDS ORDERED: loperamide 2mg capsule PO PRN (14:00)
[2018-11-28 15:00] VITALS: BP 154/73
--- NOTE | 2018-11-28 18:19 | NUR ---
Problems reprioritized. Patient report given, questions answered & plan of care reviewed with JAKE Escobar.
[2018-11-28 19:00] VITALS: BP 123/62
[2018-11-28] MEDS: atorvastatin 20mg tablet PO SCH (20:51)
[2018-11-28 23:00] VITALS: BP 129/63
--- NOTE | 2018-11-28 23:26 | NUR ---
pt refused 2300 svn treatment
[2018-11-29 02:00] VITALS: BP 91/47
[2018-11-29] MEDS: ipratropium/albuterol 3ml nebule NEB SCH ×6 (02:46→23:57)
--- NOTE | 2018-11-29 02:47 | NUR ---
pt refused 0300 svn treatment
[2018-11-29 06:00] VITALS: BP 129/75
--- NOTE | 2018-11-29 06:00 | NUR ---
Patient in room MED 308. I have received report from JAKE Escobar and had the opportunity to ask questions and assume patient care.
--- NOTE | 2018-11-29 06:24 | NUR ---
Problems reprioritized. Patient report given, questions answered & plan of care reviewed with Jannet JOSEPH.
[2018-11-29 06:35] LABS: BASOPHILS % (AUTO) 0.1 % (0-1); EOSINOPHILS % (AUTO) 0.5 % (0-6); HEMATOCRIT 25.1 % (35.0-45.0); HEMOGLOBIN 8.5 g/dl (12.0-16.0); LYMPHOCYTES # (AUTO) 0.8 X10'3 (1.1-4.8); LYMPHOCYTES % (AUTO) 14.5 % (21-51); MEAN CORPUSCULAR HEMOGLOBIN 34.3 PG (27.0-31.0); MEAN CORPUSCULAR HGB CONC 33.8 % (33.0-36.5); MEAN CORPUSCULAR VOLUME 101.4 FL (78-98); MEAN PLATELET VOLUME 9.4 FL (7.4-10.4); MONOCYTES # (AUTO) 0.6 X10'3 (0-0.9); MONOCYTES % (AUTO) 10.5 % (2-12); NEUTROPHILS % (AUTO) 74.4 % (42-75); RED BLOOD COUNT 2.47 X10'6 (4.20-5.60); RED CELL DISTRIBUTION WIDTH 23.4 % (11.5-14.5); WHITE BLOOD COUNT 5.4 X10'3 (4.5-11.0)
[2018-11-29 06:42] LABS: PLATELET COUNT 17 X10'3 (140-440)
[2018-11-29 06:44] LABS: ALANINE AMINOTRANSFERASE 20 U/L (12-78); ALBUMIN 2.2 G/DL (3.4-5.0); ALBUMIN/GLOBULIN RATIO 0.6 (1.1-1.5); ALKALINE PHOSPHATASE 82 IU/L (46-116); ANION GAP 7 (8-16); ASPARTATE AMINO TRANSFERASE 35 U/L (10-37); BILIRUBIN,TOTAL 1.1 MG/DL (0.1-1.0); BLOOD UREA NITROGEN 19 MG/DL (7-18); BUN/CREATININE RATIO 14.7 (6.6-38.0); CALCIUM 7.7 MG/DL (8.5-10.1); CHLORIDE 95 MMOL/L (99-107); CREATININE 1.29 MG/DL (0.40-0.90); GLUCOSE 129 MG/DL (70-104); MAGNESIUM 1.3 MG/DL (1.5-2.4); PHOSPHORUS 1.4 MG/DL (2.3-4.5); SODIUM 133 MMOL/L (135-145); TOTAL CARBON DIOXIDE 31.3 MMOL/L (24-32); TOTAL PROTEIN 5.7 G/DL (6.4-8.2); eGFR 40 ML/MIN
[2018-11-29 06:45] LABS: POTASSIUM 2.8 MMOL/L (3.5-5.1)
[2018-11-29 07:00] LABS: PROTHROMBIN TIME 12.7 SECONDS (9.0-12.0)
[2018-11-29 07:01] LABS: INR 1.3 INR; PARTIAL THROMBOPLASTIN TIME 38 SECONDS (22-32)
--- NOTE | 2018-11-29 07:14 | NUR ---
Critical K 2.8, platelet 17. Paged Dr Reid: PAGER ID: [phone] MESSAGE: Ondina LIANAJoellen @ [phone] re Angelina Mendez in 308. She has critical platelet this am of 17, and potassium of 2.8. We will replace K per protocol. Please advise as needed. Thank you.
[2018-11-29] MEDS: levoTHYROXINE 25mcg tablet PO SCH (07:31)
[2018-11-29] MEDS: potassium Cl 20 mEq SR tablet PO PRN ×3 (07:32→16:58)
[2018-11-29] MEDS: lactobacillus rhamnosus 10,000 MMU CELLS/CAPSULE PO SCH ×2 (07:32→19:42)
[2018-11-29] MEDS: famotidine 20mg tablet PO SCH ×2 (07:32→19:42)
[2018-11-29] MEDS: K, MAG and/or Phos replacement - Verify level? MC SCH (07:43)
[2018-11-29] MEDS: furosemide 20 MG/2 ML vial IV SCH ×2 (07:43→19:42)
[2018-11-29] MEDS: amiodarone 200mg tablet PO SCH (07:44)
[2018-11-29] MEDS: lactose-reduced food (Ensure Enlive) - 237ml bottle PO SCH (07:44)
[2018-11-29] MEDS: magnesium Cl slow-release 64mg tablet PO PRN ×2 (08:45→19:42)
[2018-11-29 08:58] LABS: ANISOCYTOSIS 3+; PLATELET ESTIMATE DECREASED; POLYCHROMASIA FEW
[2018-11-29 08:59] LABS: SCHISTOCYTES FEW
[2018-11-29 09:01] LABS: ELLIPTOCYTES FEW; TEAR DROP CELLS FEW
[2018-11-29 11:00] VITALS: BP 109/54
[2018-11-29 15:00] VITALS: BP 122/56
--- NOTE | 2018-11-29 15:00 | NUR ---
Per Dr Reid, Procrit is not indicated today with a hemoglobin of 8.5. She states that patient will need to follow up with their oncologist on this after discharge.
--- NOTE | 2018-11-29 18:25 | NUR ---
[place] documentation: I have reviewed and agree with all interventions, assessments performed and documented by Anna JOSEPH. [place] Medication Administration: For this medication-pass time frame, all medication were reviewed, dispensed, administered and documented per hospital policy by Anna JOSEPH.
--- NOTE | 2018-11-29 18:29 | NUR ---
Problems reprioritized. Patient report given, questions answered & plan of care reviewed with JAKE Ruiz.
[2018-11-29 19:00] VITALS: BP 90/48
[2018-11-29] MEDS: HYDROcodone/acetaminophen 5mg/325mg tablet PO PRN (21:53)
[2018-11-29 23:00] VITALS: BP 109/45
[2018-11-30 03:00] VITALS: BP 95/52
[2018-11-30] MEDS: ipratropium/albuterol 3ml nebule NEB SCH ×6 (03:41→22:51)
[2018-11-30 06:00] VITALS: BP 106/65
[2018-11-30] MEDS: levoTHYROXINE 25mcg tablet PO SCH (07:00)
[2018-11-30 07:04] LABS: BASOPHILS % (AUTO) 0.1 % (0-1); EOSINOPHILS % (AUTO) 0.7 % (0-6); HEMATOCRIT 23.2 % (35.0-45.0); HEMOGLOBIN 7.9 g/dl (12.0-16.0); LYMPHOCYTES # (AUTO) 0.8 X10'3 (1.1-4.8); MEAN CORPUSCULAR HEMOGLOBIN 34.3 PG (27.0-31.0); MEAN PLATELET VOLUME 8.6 FL (7.4-10.4); MONOCYTES # (AUTO) 0.9 X10'3 (0-0.9); MONOCYTES % (AUTO) 13.7 % (2-12); NEUTROPHILS # (AUTO) 4.6 X10'3 (1.8-7.7); NEUTROPHILS % (AUTO) 72.5 % (42-75); WHITE BLOOD COUNT 6.3 X10'3 (4.5-11.0)
[2018-11-30 07:11] LABS: PLATELET COUNT 22 X10'3 (140-440)
[2018-11-30 07:14] LABS: INR 1.2 INR; PARTIAL THROMBOPLASTIN TIME 43 SECONDS (22-32); PROTHROMBIN TIME 12.4 SECONDS (9.0-12.0)
[2018-11-30 07:17] LABS: ALANINE AMINOTRANSFERASE 18 U/L (12-78); ALBUMIN 2.1 G/DL (3.4-5.0); ALBUMIN/GLOBULIN RATIO 0.6 (1.1-1.5); ALKALINE PHOSPHATASE 88 IU/L (46-116); ANION GAP 6 (8-16); ASPARTATE AMINO TRANSFERASE 35 U/L (10-37); BILIRUBIN,TOTAL 1.4 MG/DL (0.1-1.0); BLOOD UREA NITROGEN 21 MG/DL (7-18); BUN/CREATININE RATIO 17.1 (6.6-38.0); CALCIUM 8.2 MG/DL (8.5-10.1); CHLORIDE 97 MMOL/L (99-107); CREATININE 1.23 MG/DL (0.40-0.90); GLUCOSE 95 MG/DL (70-104); MAGNESIUM 1.5 MG/DL (1.5-2.4); PHOSPHORUS 1.5 MG/DL (2.3-4.5); POTASSIUM 4.5 MMOL/L (3.5-5.1); SODIUM 133 MMOL/L (135-145); TOTAL CARBON DIOXIDE 29.6 MMOL/L (24-32); TOTAL PROTEIN 5.7 G/DL (6.4-8.2); eGFR 42 ML/MIN
[2018-11-30] MEDS: furosemide 20 MG/2 ML vial IV SCH (07:52)
[2018-11-30] MEDS: lactobacillus rhamnosus 10,000 MMU CELLS/CAPSULE PO SCH ×2 (08:00→20:00)
[2018-11-30] MEDS: famotidine 20mg tablet PO SCH (08:00)
[2018-11-30] MEDS: K, MAG and/or Phos replacement - Verify level? MC SCH (08:00)
[2018-11-30] MEDS: amiodarone 200mg tablet PO SCH (08:00)
[2018-11-30 12:19] VITALS: BP 115/56
--- NOTE | 2018-11-30 12:51 | NUR ---
Reassessment: Pt continues with poor intake not meeting nutrient needs. Pt seen at bedside with daughter present, pt states she doesn't have much of an appetite but that she drinks 100% of 1 Ensure Enlive a day. Encouraged pt to eat food on meal trays and drink more of the Ensure. Provided pt with alternative write in menu in order to provide additional food choices in hopes of optimizing PO intake. Pt states her milk allergy is a lactose intolerance and doesn't want milk to drink. Pt states she is still with some diarrhea, documented 700 mL stool output from rectal tube. Pt agrees to rice at dinner, d/w dietary. Pt agreeable to strawberry smoothie. Unfortunately there is lactose in it, will send strawberry banana to help bulk stool, d/w dietary. Per MD notes pt would like to return back home on palliative care. Will continue to follow. Rec: 1. continue regular diet 2. ensure enlive w/ meals; honor pt food preferences 3. Encourage PO intake 4. wt per rx 5. monitor for changes in code status 6. IF corpak feeds; AF @ 65ml/hr Addendum: 11/30/18 at [address] Amended: Links added.
[2018-11-30 15:00] VITALS: BP 137/67
--- NOTE | 2018-11-30 17:32 | NUR ---
The patient's rectal tube removed per MD order. Patient tolerated well. Patient cleaned, barrier cream applied again, and new foam dressing to coccyx. No redness or breakdown noted. Patient denied any pain. VSS. Encouraging po fluids and foods as eladia.
[2018-11-30 19:00] VITALS: BP 107/57
--- NOTE | 2018-11-30 20:00 | NUR ---
Patient in room MED 308. I have received report from Art and had the opportunity to ask questions and assume patient care.
[2018-12-01] MEDS: ipratropium/albuterol 3ml nebule NEB SCH ×4 (03:00→16:00)
[2018-12-01] MEDS: HYDROcodone/acetaminophen 5mg/325mg tablet PO PRN (03:34)
--- NOTE | 2018-12-01 06:00 | NUR ---
Patient in room MED 308. I have received report from JAKE Ratliff and had the opportunity to ask questions and assume patient care.
[2018-12-01 08:00] VITALS: BP 129/81
[2018-12-01] MEDS ORDERED: furosemide 20 MG/2 ML vial IV SCH (08:00)
[2018-12-01] MEDS: levoTHYROXINE 25mcg tablet PO SCH (08:21)
[2018-12-01] MEDS: amiodarone 200mg tablet PO SCH (08:24)
[2018-12-01] MEDS: lactobacillus rhamnosus 10,000 MMU CELLS/CAPSULE PO SCH (08:24)
[2018-12-01 08:46] LABS: BASOPHILS % (AUTO) 0.1 % (0-1); EOSINOPHILS # (AUTO) 0.1 X10'3 (0-0.9); EOSINOPHILS % (AUTO) 1.5 % (0-6); HEMATOCRIT 23.1 % (35.0-45.0); HEMOGLOBIN 7.7 g/dl (12.0-16.0); LYMPHOCYTES % (AUTO) 16.6 % (21-51); MEAN CORPUSCULAR HGB CONC 33.4 % (33.0-36.5); MEAN CORPUSCULAR VOLUME 101.5 FL (78-98); MEAN PLATELET VOLUME 9.8 FL (7.4-10.4); MONOCYTES # (AUTO) 0.8 X10'3 (0-0.9); MONOCYTES % (AUTO) 12.8 % (2-12); NEUTROPHILS # (AUTO) 4.1 X10'3 (1.8-7.7); RED BLOOD COUNT 2.27 X10'6 (4.20-5.60); RED CELL DISTRIBUTION WIDTH 25.5 % (11.5-14.5)
[2018-12-01] MEDS: albuterol 2.5 MG/3 ML nebule NEB PRN (08:47)
[2018-12-01 08:56] LABS: PLATELET COUNT 46 X10'3 (140-440)
[2018-12-01 09:00] LABS: INR 1.1 INR; PARTIAL THROMBOPLASTIN TIME 38 SECONDS (22-32); PROTHROMBIN TIME 10.8 SECONDS (9.0-12.0)
[2018-12-01 09:02] LABS: TOTAL CELLS COUNTED 100
[2018-12-01 09:03] LABS: PLATELET ESTIMATE DECREASED
[2018-12-01 09:04] LABS: ANISOCYTOSIS 3+
[2018-12-01 09:15] LABS: ANION GAP 7 (8-16); BLOOD UREA NITROGEN 21 MG/DL (7-18); BUN/CREATININE RATIO 16.5 (6.6-38.0); CALCIUM 8.8 MG/DL (8.5-10.1); CHLORIDE 94 MMOL/L (99-107); CREATININE 1.27 MG/DL (0.40-0.90); GLUCOSE 94 MG/DL (70-104); POTASSIUM 4.1 MMOL/L (3.5-5.1); SODIUM 133 MMOL/L (135-145); TOTAL CARBON DIOXIDE 32.4 MMOL/L (24-32); eGFR 41 ML/MIN
[2018-12-01 09:16] LABS: ALANINE AMINOTRANSFERASE 22 U/L (12-78); ALBUMIN 2.4 G/DL (3.4-5.0); ALBUMIN/GLOBULIN RATIO 0.6 (1.1-1.5); ALKALINE PHOSPHATASE 111 IU/L (46-116); ASPARTATE AMINO TRANSFERASE 41 U/L (10-37); MAGNESIUM 1.6 MG/DL (1.5-2.4); PHOSPHORUS 2.4 MG/DL (2.3-4.5); TOTAL PROTEIN 6.5 G/DL (6.4-8.2)
--- NOTE | 2018-12-01 09:45 | NUR ---
Report given to JAKE Velez, Chris with JAKE Franco. All questions answered.
[2018-12-01 10:15] VITALS: BP 103/47
--- NOTE | 2018-12-01 10:15 | NUR ---
Patient left the floor and was transferred to PCU. Patient left in a stable condition. All belongings transferred with patient to room 3020.
--- NOTE | 2018-12-01 10:20 | NUR ---
REPORT RECEIVED FROM ACCE RN NARGIS. PT ARRIVED TO UNIT AT 1015 AND WAS TRANSFERRED TO BED BY ACCE MAINTENANCE OPERATOR AND LITERARY WRITER. PT VITAL SIGNS OBTAINED AND STABLE, NO C/O PAIN AT THIS TIME, NEUTROPENIC PRECAUTIONS IN PLACE, PT RESTING COMFORTABLY. BED LOCKED AND LOW CALL LIGHT WITHIN REACH, WILL CONTINUE TO MONITOR.
--- NOTE | 2018-12-01 10:41 | NUR ---
DURING REPORT MOTORCOACH DRIVERJAKE SNOWDEN [facility] INFORMED ME THAT DR. PAK STATED THAT WE ARE NOT TO ADMINISTER THE PROCRIT THAT IS IN THE PT'S EMAR, AND THAT THE PROCRIT WOULD BE HANDLED BY THE PT'S CANCER DRMathieu
--- NOTE | 2018-12-01 15:14 | NUR ---
PT DISCHARGED TO [facility] AT 1500. REPORT CALLED TO SUBHA SIMMONS AT 1430. PT PIV REMOVED CANNULA INTACT DRESSING APPLIED WITH NO ISSUES NOTED. PT TELEMETRY WAS REMOVED PT AND BELONGINGS WERE GATHERED AND SENT WITH THE PT. PT SON WAS AT BEDSIDE AND WILL BE FOLLOWING TO THE NEW FACILITY. PT WAS TRANSFERRED BY [facility] AND MEDICAL TRANSFER PERSONNEL. PT IN STABLE CONDITION AND NO LONGER ON THE FLOOR.
== END 2018-12-01 16:25 | DRG 871 ==
LOC: ER 12:40 → ED HOLD 21:34 → CICU 2S 11-19 00:18 → PCU 3S 11-23 16:20 → MED 3N 11-25 20:42 → PCU 3S 12-01 10:05
PROVIDERS: ATTEND Internal Medicine
PROC: 5A09357 Assistance with Respiratory Ventilation, Less than 24 Consecutive Hours, Continuous Positive Airway Pressure (ICD-10-PCS; principal; 2018-11-18)
PROC: B32T1ZZ Computerized Tomography (CT Scan) of Left Pulmonary Artery using Low Osmolar Contrast (ICD-10-PCS; 2018-11-18)
PROC: B3201ZZ Computerized Tomography (CT Scan) of Thoracic Aorta using Low Osmolar Contrast (ICD-10-PCS; 2018-11-18)
PROC: B32S1ZZ Computerized Tomography (CT Scan) of Right Pulmonary Artery using Low Osmolar Contrast (ICD-10-PCS; 2018-11-18)
PROC: 5A09357 Assistance with Respiratory Ventilation, Less than 24 Consecutive Hours, Continuous Positive Airway Pressure (ICD-10-PCS; 2018-11-19)
PROC: 5A09357 Assistance with Respiratory Ventilation, Less than 24 Consecutive Hours, Continuous Positive Airway Pressure (ICD-10-PCS; 2018-11-21)
PROC: 30233N1 Transfusion of Nonautologous Red Blood Cells into Peripheral Vein, Percutaneous Approach (ICD-10-PCS; 2018-11-22)
PROC: 5A09357 Assistance with Respiratory Ventilation, Less than 24 Consecutive Hours, Continuous Positive Airway Pressure (ICD-10-PCS; 2018-11-23)
PROC: 5A09357 Assistance with Respiratory Ventilation, Less than 24 Consecutive Hours, Continuous Positive Airway Pressure (ICD-10-PCS; 2018-11-24)
PROC: 5A09357 Assistance with Respiratory Ventilation, Less than 24 Consecutive Hours, Continuous Positive Airway Pressure (ICD-10-PCS; 2018-11-26)
PROC: 30233R1 Transfusion of Nonautologous Platelets into Peripheral Vein, Percutaneous Approach (ICD-10-PCS; 2018-11-26)
PROC: 30233R1 Transfusion of Nonautologous Platelets into Peripheral Vein, Percutaneous Approach (ICD-10-PCS; 2018-11-27)
DX: A41.9 Sepsis, unspecified organism (principal); I21.4 Non-ST elevation (NSTEMI) myocardial infarction; D61.810 Antineoplastic chemotherapy induced pancytopenia; G93.41 Metabolic encephalopathy; J69.0 Pneumonitis due to inhalation of food and vomit; J96.22 Acute and chronic respiratory failure with hypercapnia; J96.21 Acute and chronic respiratory failure with hypoxia; E43 Unspecified severe protein-calorie malnutrition; C78.6 Secondary malignant neoplasm of retroperitoneum and peritoneum; C78.01 Secondary malignant neoplasm of right lung; N17.9 Acute kidney failure, unspecified; I31.4 Cardiac tamponade; C79.60 Secondary malignant neoplasm of unspecified ovary; E87.2 Acidosis; I47.1 Supraventricular tachycardia; D64.9 Anemia, unspecified; I48.0 Paroxysmal atrial fibrillation; D63.8 Anemia in other chronic diseases classified elsewhere; D69.59 Other secondary thrombocytopenia; E87.6 Hypokalemia; K52.9 Noninfective gastroenteritis and colitis, unspecified; N18.9 Chronic kidney disease, unspecified; Z51.5 Encounter for palliative care; I95.2 Hypotension due to drugs; T46.1X5A Adverse effect of calcium-channel blockers, initial encounter; Z86.711 Personal history of pulmonary embolism; Z90.710 Acquired absence of both cervix and uterus; Z90.49 Acquired absence of other specified parts of digestive tract; Z79.899 Other long term (current) drug therapy; Y92.238 Other place in hospital as the place of occurrence of the external cause; Z68.22 Body mass index [BMI] 22.0-22.9, adult
CPT/HCPCS: 36415; 36600; 71045; 71250; 71275; 74176; 80053; 81001; 82272; 82803; 82948; 83605; 83735; 83880; 84100; 84132; 84145; 84439; 84443; 84484; 85018; 85025; 85027; 85379; 85610; 85730; 86885; 86900; 86901; 86920; 87040; 87045; 87046; 87070; 87324; 87449; 87502; 87503; 93005; 93306; 94640; 94660; 94760; 96365; 96367; 96372; 96375; 96376; 97110; 97116; 97162; 97530; 99291; G0378; J0282; J0610; J0885; J1265; J1642; J1650; J1720; J1940; J1956; J2060; J2405; J3475; J3480; J3490; J7030; J7611; P9016; P9035; P9045; Q9963; Q9967